=== PATIENT | male | born 1930 | race Two or more races ===

== ENCOUNTER 2018-09-19 11:40 | Inpatient (IN) | payer MEDICARE, OTHER ==
[2018-09-19] VITALS (8 sets, daily range): BP systolic 91–125; BP diastolic 44–77
[~2018-09-19] VITALS: Ht 172.7 cm; Wt 74.8 kg
--- NOTE | 2018-09-19 11:42 | NUR ---
ISIAH 878 FRM [facility] FOR AMS, SOB X TODAY. PT CAME IN ON NON-REBREATHER MASK AT 15LPM, O2 SAT UPON ARRIVAL AT 95%. PT NOTED AWAKE AND LETHARGIC. IVP ON LH 22G WITH ONGOING 1L NS. TO ER BED 8, HOOKED TO CREW MEMBER, RT AT BEDSIDE. PLACED ON HI-FLOW O2 VIA NC AT 55%, CHANGED TO GOWN, IVP LINE STARTED AT RH 20H, DR BURR AT BEDSIDE.
[2018-09-19] MEDS ORDERED: methylPREDNISolone SOD SUCC 125 MG/2ML VIAL ONE (11:51)
[2018-09-19 12:00] LABS: BASOPHILS # (AUTO) 0.1 /CMM (0.0-0.2); BASOPHILS % (AUTO) 0.5 % (0.0-2.0); EOSINOPHILS % (AUTO) 0.5 % (0.0-6.0); HEMATOCRIT 36 % (39-51); HEMOGLOBIN 11.7 g/dL (13.5-17.5); LYMPHOCYTES # (AUTO) 1.5 /CMM (0.8-4.8); LYMPHOCYTES % (AUTO) 14.8 % (20.0-44.0); MEAN CORPUSCULAR HGB CONC 32 g/dl (31.0-36.0); MEAN CORPUSCULAR VOLUME 91 fL (80-96); MONOCYTES # (AUTO) 0.9 /CMM (0.1-1.30); MONOCYTES % (AUTO) 9.5 % (2.0-12.0); NEUTROPHILS # (AUTO) 7.4 /CMM (1.8-8.9); NEUTROPHILS % (AUTO) 74.7 % (43.0-81.0); PLATELET COUNT (AUTO) 277 /CMM (150-450); RED BLOOD CELL COUNT(AUTO) 3.94 MIL/uL (4.5-6.0); WHITE BLOOD COUNT (AUTO) 9.9 K/uL (4.3-11.0)
[2018-09-19] MEDS ORDERED: IV NS 0.9% 1,000 ML BAG IV ONE (12:00)
[2018-09-19] MEDS ORDERED: ALBUTEROL FS 2.5 MG/0.5 ML VIAL.NEB NEB ONE (12:00)
[2018-09-19] MEDS ORDERED: methylPREDNISolone SOD SUCC 125 MG/2ML VIAL IV ONE (12:00)
[2018-09-19] MEDS ORDERED: ALBUTEROL FS 2.5 MG/3 ML VIAL.NEB ONE (12:07)
[2018-09-19 12:08] LABS: CALCIUM, SERUM 9.2 mg/dL (8.5-10.1); CARBON DIOXIDE 28 mmol/L (21-32); CHLORIDE 104 mmol/L (98-107); CREATININE 1.5 mg/dL (0.6-1.3); GLUCOSE 158 mg/dL (74-106); POTASSIUM 4.8 mmol/L (3.5-5.1); SODIUM SERUM 141 mmol/L (136-145); UREA NITROGEN, BLOOD 53 mg/dL (7-18)
[2018-09-19 12:11] LABS: APPEARANCE,URINE Slightly Cloudy (CLEAR); BILIRUBIN,URINE Negative (NEGATIVE); BLOOD, URINE Large Ery/uL (NEGATIVE); KETONES,URINE Negative (NEGATIVE); LEUKOCYTE ESTERASE ,URINE Large (NEGATIVE); NITRITE, URINE Negative (NEGATIVE); PH,URINE 6.5 (5.0-8.0); PROTEIN,URINE >=300 mg/dl (NEGATIVE); UGLUCOSE Negative (NEGATIVE)
[2018-09-19 12:12] LABS: COLOR,URINE Dark Yellow (YELLOW)
--- NOTE | 2018-09-19 12:17 | NUR ---
HARBOR TUG CAPTAIN AT BEDSIDE
[2018-09-19 12:21] LABS: BACTERIA,URINE Many /HPF (None Seen); SQUAMOUS EPITHELIAL CELL,UR Rare /HPF (None Seen); WBC,URINE TOO NUMEROUS TO COUN /HPF (0-3)
[2018-09-19 12:22] LABS: RBC,URINE 21-50 /HPF (0-2)
[2018-09-19 12:25] LABS: ALANINE AMINOTRANSFERASE 63 U/L (12-78); ALBUMIN 2.6 g/dL (3.4-5.0); ALKALINE PHOSPHATASE 114 U/L (46-116); ASPARTATE AMINOTRANSFERASE 62 U/L (15-37); B-TYPE NATRIURETIC PEPTIDE 791 PG/ML (0-125); BILIRUBIN,DIRECT 0.4 mg/dL (0.0-0.2); BILIRUBIN,TOTAL 0.9 mg/dL (0.2-1.0); TOTAL PROTEIN, SERUM 7.3 g/dL (6.4-8.2)
--- NOTE | 2018-09-19 12:26 | NUR ---
NASAL SUCTION DONE BY RT, LARGE YELLOW THICK SECRETIONS NOTED. NOTED W BILATERAL COARSE CRACKLES
--- NOTE | 2018-09-19 12:33 | NUR ---
PT. PLACED INTO HIGH FLOW OXYGEN DUE TO INCREASED WOB AND LOW SPO2 WITH SETTINGS BELOW ORDER: FLOW 60 FIO2 55% Addendum: 09/19/18 at 1234 by DARWIN TOMPKINS RT Amended: Links added.
[2018-09-19] MEDS ORDERED: CLINDAMYCIN IV RTU IN D5W 900 MG/50 ML PIGGYBACK IV ONE (13:00)
[2018-09-19] MEDS ORDERED: ACET-73 GT (13:03)
[2018-09-19] MEDS ORDERED: MULT-213 GT (13:03)
[2018-09-19] MEDS ORDERED: BISA10SU61 RC (13:03)
[2018-09-19] MEDS ORDERED: NA P133E RC (13:03)
[2018-09-19] MEDS ORDERED: ACET325T53 GT (13:03)
[2018-09-19] MEDS ORDERED: MAGN400O6 GT (13:03)
[2018-09-19] MEDS ORDERED: NUT.237L25 GT (13:03)
[2018-09-19] MEDS ORDERED: AMIN30LI27 GT (13:03)
[2018-09-19] MEDS ORDERED: ZINC220C6 GT (13:03)
[2018-09-19] MEDS ORDERED: ASCO500T9 GT (13:03)
[2018-09-19] MEDS ORDERED: DOCU50LI GT (13:03)
[2018-09-19] MEDS ORDERED: CRAN3875 GT (13:03)
--- NOTE | 2018-09-19 13:12 | NUR ---
CALLED FOR [facility] (110), TURNED MOVE SHEET.
--- NOTE | 2018-09-19 13:44 | NUR ---
REPORT GIVEN TO ANCA ESCAMILLA OF [facility]
--- NOTE | 2018-09-19 14:30 | NUR ---
CALLED [facility], SPOKE WITH MICHAEL WHO STATED THAT THERE IS NO BEDS, AND THAT THE FAMILY COULD TRY TOMORROW.
--- NOTE | 2018-09-19 16:25 | NUR ---
FAMILY DECIDED TO HAVE PT ADMITTED IN [place] WHILE WAITING FOR BED AVAILABILITY IN [facility]. MADE DR LUIS MIGUEL NIELSEN AWARE. TRANSFERRED PT TO [facility].
[2018-09-19] MEDS ORDERED: NA PHOS,M-B/NA PHOS,DI-BA 1 EA ENEMA RC PRN (16:30)
[2018-09-19] MEDS ORDERED: MISCELLANEOUS MED 1 EA EA GT PRN (16:30)
[2018-09-19] MEDS ORDERED: MAGNESIUM HYDROXIDE 30 ML UDC PO PRN (16:30)
[2018-09-19] MEDS ORDERED: BISACODYL SUPP (10 MG) 10 MG/SUPP.RECT SUPP.RECT RC PRN (16:30)
[2018-09-19] MEDS ORDERED: ONDANSETRON HCL/PF 4 MG/2 ML VIAL IVP PRN (16:30)
[2018-09-19] MEDS ORDERED: MAG HYDROX/AL HYDROX/SIMETH 30 ML UDC PO PRN (16:30)
[2018-09-19] MEDS ORDERED: ACETAMINOPHEN 325 MG TABLET PO PRN ×2 (16:30)
[2018-09-19] MEDS ORDERED: MAGNESIUM HYDROXIDE 30 ML UDC GT PRN ×2 (16:30→18:23)
--- NOTE | 2018-09-19 16:45 | NUR ---
[facility] RANGE FEEDER NOTES RECEIVED REPORT FROM FRANCINE MAGAÑA.PT IS AWAKE WITH PAINFUL STIMULI,WITH T PIECE @55%.NO SOB AND ACUTE DISTRESS NOTED.SATURATING WELL.BED BOUND.HAS G TUBE PRESENT,CLAMPED.B/L NEPHROSTOMY TUBE PRESENT WITH DARK YELLOW COLOR URINE.SKIN ASSESSMENT IS DONE,PICTURE HAS TAKEN.IV LINE IS ON RIGHT FA G20,SL.SITE IS CLEAN,DRY AND INTACT.PT IS CLEAN AND DRY.FAMILY IS AT BEDSIDE.BED IS IN LOW POSITION AND LOCKED.CALL LIGHT IS WITHIN REACH.WILL CONTINUE TO MONITOR THE PT CLOSELY.
[2018-09-19] MEDS ORDERED: DOCUSATE SODIUM 100 MG CAPSULE PO SCH (17:00)
[2018-09-19] MEDS ORDERED: Medication Not On Formulary EA (Cran/Vitc/Mannose/Inulin/Brom (Uti-Stat Liquid) 30 ML) GT SCH (17:00)
--- NOTE | 2018-09-19 17:08 | NUR ---
Dr. Castanon notified with patient admission updated on high flow fio2 at 55% and sat 96%,dr. castanon ordered abg ,will relay result to dr. castanon once available.
--- NOTE | 2018-09-19 17:10 | NUR ---
also notified humberto case management specialist regarding request transfer to [facility].
[2018-09-19] MEDS: methylPREDNISolone SOD SUCC 40 MG/ML VIAL IV SCH (17:39)
[2018-09-19] MEDS: IV NS 0.9% 1,000 ML IV PRN (17:40)
[2018-09-19] MEDS: PROSOURCE / PROSTAT (PYXIS) 30 ML UDC GT SCH (17:40)
[2018-09-19 17:41] LABS: ABG OXYGEN SATURATION 96.2 % (92.0-98.5); ABG PCO2 47.4 mmHg (35.0-45.0); ABG PH 7.355 (7.350-7.450); ABG PO2 97.9 mmHg (75.0-100.0); AaDO2 241.5 mmHg; COHb 0.4 % (0.5-1.5); MetHb 0.5 % (0.0-1.5); O2Hb 95.3 % (94.0-97.0); SITE, ABG Right Radial; VENT MODE, BG 55% high flow nasal cannu
--- NOTE | 2018-09-19 17:54 | NUR ---
DR. JUAN NOTIFIED ABG RESULT AND UPDATED WITH PATIENT COGNITIVE STATUS,ORDERED ICU TRANSFER FOR CLOSE MONITORING.
--- NOTE | 2018-09-19 18:00 | NUR ---
[facility] RN NOTES PT TRANSFERRED TO ICU ROOM 252,RT AND RN AT BEDSIDE WHILE TRANSFER.NO SOB AND ACUTE DISTRESS NOTED WITH SR.REPORT GIVEN TO CHARGE NURSE.FAMILY MADE AWARE AND NO COMPLICATIONS NOTED.
[2018-09-19] MEDS ORDERED: MAG HYDROX/AL HYDROX/SIMETH 30 ML UDC GT PRN (18:10)
--- NOTE | 2018-09-19 18:25 | NUR ---
received patient from priscilla braun per dr castanon request transfer to icu for closer monitoring. patient on high flow 02 55% at 60L and saturating stable at 96% without sob or difficulty breathing. patient opens eyes to painful stimuli and moves to localized pain. patient tele nsr with 1st degree heart block. afebrile. noted with g tube clamped; placement verified. noted with bilateral nephrostomy tubes intact and patent. iv site c/d/i/p with ivf running per order. skin, safety, aspiration precautions in place and will monitor Addendum: 09/19/18 at 1925 by SUZANNE LEDESMA RN core temp 96.0 applied warm blankets. core temp monitoring applied
--- NOTE | 2018-09-19 19:00 | NUR ---
care endorsed to priscilla darnell for evelia
[2018-09-19] MEDS: CLINDAMYCIN 300 MG in IV D5W 50 ML IV SCH (19:30)
[2018-09-19] MEDS: ALBUTEROL FS 2.5 MG/0.5 ML VIAL.NEB NEB SCH (19:39)
[2018-09-19] MEDS: IPRATROPIUM NEB FS 0.5 MG/2.5 ML AMPUL.NEB NEB SCH (19:39)
--- NOTE | 2018-09-19 19:40 | NUR ---
RN NOTES RECEIVED PT ON BED ON HIGH FLOW O2 60 LPM FIO2 55% SATURATION 96%.NO ACUTE RESPIRATORY DISTRESS. OPENS EYES, COLD AND CLAMMY BS 168 TEMPERATURE 96, WARM BLANKET AND EXTRA BLANKET PROVIDED. FAMILY AT BEDSIDE. PT RESIST WHEN TOUCH. RESPONSIVE TO TACTILE AND VERBAL STIMULI, CONFUSED. SR W/ FIRST DEGREE AVB ON TELE MONITOR. IV SITE ON RIGHT HAND G 20 RUNNING WITH NS @ 75 ML/.HR INTACT AND PATENT. PATIENT HAS GT CLAMPED PATENT WITH NO RESIDUAL. TURNED AND REPOSITIONED FOR COMFORTABLE. HOB KEPT ELEVATED. CALL LIGHT KEPT WITHIN EASY REACH. WILL CLOSELY MONITOR.
--- NOTE | 2018-09-19 20:30 | NUR ---
RN NOTES FAMILY AT BEDSIDE, KONRAD CRUZ REQUESTED TO PLACED BIPAP AT NIGHT SINCE THE PATIENT IS HAVING IT IN THE OTHER HOSPITAL AND REHAB.RT EXPLAINED TO FAMILY THE RISK AND BENEFITS OF HIGH FLOW OXYGEN AND THE DIFFERENCE FROM BIPAP. INFORMED FAMILY THE WILL INFORM MD REGARDING THEIR REQUEST.
[2018-09-19] MEDS ORDERED: SULFAMETH/TRIMETH 800/160 MG 1 UDTAB TABLET PO SCH (21:00)
[2018-09-19] MEDS: AZTREONAM 1 G in IV NS 0.9% 100 ML IV SCH (21:11)
--- NOTE | 2018-09-19 22:30 | NUR ---
RN NOTES NOTED PT IV CAME OUT. NEW IV INSERTED ON RIGHT FOREARM G 20 INTACT AND PATENT WITH GOOD BLOOD RETURN
[2018-09-20] VITALS (27 sets, daily range): BP systolic 86–119; BP diastolic 40–74
[2018-09-20] MEDS: CLINDAMYCIN 300 MG in IV D5W 50 ML IV SCH ×4 (00:23→18:38)
[2018-09-20] MEDS: ALBUTEROL FS 2.5 MG/0.5 ML VIAL.NEB NEB SCH ×4 (01:19→19:36)
[2018-09-20] MEDS: IPRATROPIUM NEB FS 0.5 MG/2.5 ML AMPUL.NEB NEB SCH ×4 (01:19→19:36)
[2018-09-20 04:28] LABS: BASOPHILS % (AUTO) 0.5 % (0.0-2.0); HEMATOCRIT 31 % (39-51); HEMOGLOBIN 9.8 g/dL (13.5-17.5); LYMPHOCYTES # (AUTO) 0.5 /CMM (0.8-4.8); LYMPHOCYTES % (AUTO) 8.5 % (20.0-44.0); MEAN CORPUSCULAR HGB CONC 32 g/dl (31.0-36.0); MEAN CORPUSCULAR VOLUME 92 fL (80-96); MONOCYTES # (AUTO) 0.2 /CMM (0.1-1.30); MONOCYTES % (AUTO) 3.7 % (2.0-12.0); NEUTROPHILS # (AUTO) 5.4 /CMM (1.8-8.9); NEUTROPHILS % (AUTO) 87.3 % (43.0-81.0); PLATELET COUNT (AUTO) 240 /CMM (150-450); RED BLOOD CELL COUNT(AUTO) 3.35 MIL/uL (4.5-6.0); WHITE BLOOD COUNT (AUTO) 6.1 K/uL (4.3-11.0)
[2018-09-20 04:42] LABS: CARBON DIOXIDE 25 mmol/L (21-32); CHLORIDE 110 mmol/L (98-107); GLUCOSE 136 mg/dL (74-106); MAGNESIUM 2.2 mg/dL (1.8-2.4); POTASSIUM 4.5 mmol/L (3.5-5.1); SODIUM SERUM 144 mmol/L (136-145); UREA NITROGEN, BLOOD 47 mg/dL (7-18)
[2018-09-20 04:56] LABS: CHOLESTEROL 91 mg/dL (<200); HDL CHOLESTEROL 19 mg/dL (40-60); LDL 43 mg/dL (0-99); THYROID STIMULATING HORMONE 8.384 uIU/mL (0.358-3.74); TRIGLYCERIDES 144 mg/dL (30-150)
[2018-09-20] MEDS: AZTREONAM 1 G in IV NS 0.9% 100 ML IV SCH ×3 (05:12→21:34)
[2018-09-20] MEDS: IV NS 0.9% 1,000 ML IV PRN ×2 (06:24→18:37)
--- NOTE | 2018-09-20 06:48 | NUR ---
RN NOTES PATIENT CONTINUE ON HIGH FLOW AT THE SAME RATE ORDERED. FREQUENT SUCTIONING PROVIDED. NO SIGNIFICANT TYRA THROUGHOUT THE SHIFT. ASLEEP WELL. HOB KEPT ELEVATED. IVF RUNNING @ 75 ML.HR ON RFA. ALL DUE MEDS AND IV ATB TOLERATED WELL. INCONTINENT CARE PROVIDED. BILATERAL NEPHROSTOMY TUBE INTACT DRAINED WITH YELLOW CLEAR COLOR URINE. KEPT PT CLEAN AND DRY BED BATH DONE AND TOLERATED WELL. WILL ENDORSED TO AM SHIFT THAT SON REQUESTED TO PLACED BIPAP AT NIGHT . WILL ENDORSED CONTINUITY OF CARE TO AM NURSE.
--- NOTE | 2018-09-20 07:05 | NUR ---
CAN DOFFER INITIAL NOTES RECEIVED PT ON HIGH FLOW 02 AT 60LPM AND AN FIO2 OF 55%. NO SOB OR ACUTE SIGNS OF DISTRESS NOTED. BREATHING IS EVEN AND UNLABORED. PT NOTED TO BE SINUS RHYTHM ON THE MONITOR. BILATERAL NEPHROSTOMY NOTED TO BE DRAINING. RIGHT FA 20G NOTED TO BE C/D/I. PT TOLERATING NS 75ML/HR. NO REDNESS OR SIGNS OF INFILTRATION NOTED. GTUBE NOTED TO BE CLAMPED. PLACEMENT VERIFIED VIA AUSCULTATION. PT NOTED TO BE HYPOTHERMIC WITH A CURRENT CORE TEMP OF 95.3. CENTRAL SUPPLY CONTACTED FOR ALIYA COKER. FURTHER WARMING MEASURES INITIATED. BED IN LOW LOCKED POSITION, SIDE RAILS UP X3, CALL LIGHT WITHIN REACH, BED ALARM ON FOR FURTHER SAFETY. WILL CONTINUE TO MONITOR
[2018-09-20] MEDS ORDERED: PANTOPRAZOLE 40 MG TABLET.DR PO SCH (07:30)
[2018-09-20] MEDS: PANTOPRAZOLE 40 MG/PACK PACK GT SCH (08:20)
[2018-09-20] MEDS: DOCUSATE SODIUM LIQ 100 MG/10 ML UDC GT SCH ×2 (08:21→17:19)
[2018-09-20] MEDS: ZINC SULFATE 220 MG CAPSULE GT SCH (08:21)
[2018-09-20] MEDS: MULTIVITAMINS,THERAGRAN 1 UDTAB TABLET GT SCH (08:21)
[2018-09-20] MEDS: methylPREDNISolone SOD SUCC 40 MG/ML VIAL IV SCH ×2 (08:21→17:19)
[2018-09-20] MEDS: ASCORBIC ACID 500 MG TABLET GT SCH (08:21)
[2018-09-20] MEDS ORDERED: DOCUSATE SODIUM LIQ 100 MG/10 ML UDC GT SCH (09:00)
[2018-09-20] MEDS: PROSOURCE / PROSTAT (PYXIS) 30 ML UDC GT SCH ×2 (09:14→17:21)
[2018-09-20 09:27] LABS: ABG BASE EXCESS -0.5 mmol/L; ABG OXYGEN SATURATION 97.4 % (92.0-98.5); ABG PCO2 46.9 mmHg (35.0-45.0); ABG PH 7.351 (7.350-7.450); ABG PO2 114.1 mmHg (75.0-100.0); AaDO2 262.1 mmHg; COHb 0.1 % (0.5-1.5); MetHb 0.5 % (0.0-1.5); O2Hb 96.8 % (94.0-97.0); SITE, ABG Right Radial; VENT MODE, BG HFNC
[2018-09-20] MEDS: ENOXAPARIN SODIUM 40 MG/0.4 ML DISP.SYRIN SQ SCH (10:45)
[2018-09-20] MEDS ORDERED: NOREPINEPHRINE 8 MG in IV D5W 500 ML IV PRN (11:00)
[2018-09-20] MEDS: TWOCAL HN 1,000 ML LIQUID GT SCH (11:38)
--- NOTE | 2018-09-20 11:55 | NUR ---
QUARTZ MINER BLASTING NOTES: INSPECTOR PUBLICATIONS ROUNDING LUIS MIGUEL AT BEDSIDE AND MADE AWARE OF PT'S CONDITION AND RECENT VITAL SIGNS. VERBAL ORDER OBTAINED FROM MD FOR BILATERAL RESTRAINTS PT IS NOTED TO BE REMOVING NC ALONG WITH BEAR HUGGER. PT'S CAREGIVER AT BEDSIDE AND UPDATED ON PLAN OF CARE.
--- NOTE | 2018-09-20 19:22 | NUR ---
FRANCHISE MANAGER CLOSING NOTES NO ACUTE CHANGES IN PT'S CONDITION DURING SHIFT. VSS. PT HAS A CURRENT TEMP OF 96.8. WARMING MEASURES CONTINUED. INVASIVE LINES REMAIN PATENT AND INTACT. PT CONTINUES TOLERATING NS INFUSION WELL. TUBE FEEDING INITIATED DIRECTED BY ELECTRIC METER INSPECTOR. PT TOLERATING FEEDINGS WELL. NO RESIDUALS ASPIRATED AT THIS TIME. SAFETY MEASURES REMAIN IN PLACE. ENDORSED TO NIGHTSHIFT RN FOR TYRA
[2018-09-21] VITALS (29 sets, daily range): BP systolic 104–172; BP diastolic 43–69
[2018-09-21] MEDS: CLINDAMYCIN 300 MG in IV D5W 50 ML IV SCH ×5 (00:20→23:25)
[2018-09-21] MEDS: IPRATROPIUM NEB FS 0.5 MG/2.5 ML AMPUL.NEB NEB SCH ×4 (00:59→19:03)
[2018-09-21] MEDS: ALBUTEROL FS 2.5 MG/0.5 ML VIAL.NEB NEB SCH ×4 (00:59→19:03)
[2018-09-21 04:27] LABS: BASOPHILS % (AUTO) 0.2 % (0.0-2.0); HEMATOCRIT 30 % (39-51); HEMOGLOBIN 9.4 g/dL (13.5-17.5); LYMPHOCYTES # (AUTO) 0.3 /CMM (0.8-4.8); LYMPHOCYTES % (AUTO) 3.6 % (20.0-44.0); MEAN CORPUSCULAR HGB CONC 32 g/dl (31.0-36.0); MEAN CORPUSCULAR VOLUME 94 fL (80-96); MONOCYTES # (AUTO) 0.5 /CMM (0.1-1.30); MONOCYTES % (AUTO) 6.3 % (2.0-12.0); NEUTROPHILS # (AUTO) 7.5 /CMM (1.8-8.9); NEUTROPHILS % (AUTO) 89.9 % (43.0-81.0); PLATELET COUNT (AUTO) 236 /CMM (150-450); RED BLOOD CELL COUNT(AUTO) 3.16 MIL/uL (4.5-6.0); WHITE BLOOD COUNT (AUTO) 8.4 K/uL (4.3-11.0)
[2018-09-21 04:40] LABS: CALCIUM, SERUM 9.2 mg/dL (8.5-10.1); CARBON DIOXIDE 26 mmol/L (21-32); CHLORIDE 117 mmol/L (98-107); CREATININE 0.9 mg/dL (0.6-1.3); GLUCOSE 171 mg/dL (74-106); MAGNESIUM 2.2 mg/dL (1.8-2.4); PHOSPHORUS 3.1 mg/dL (2.5-4.9); POTASSIUM 4.2 mmol/L (3.5-5.1); SODIUM SERUM 149 mmol/L (136-145); UREA NITROGEN, BLOOD 41 mg/dL (7-18)
[2018-09-21] MEDS: AZTREONAM 1 G in IV NS 0.9% 100 ML IV SCH ×3 (05:24→20:51)
--- NOTE | 2018-09-21 07:06 | NUR ---
RFID SYSTEMS ENGINEER INITIAL NOTES RECEIVED PT ON HIGH FLOW 02 AT 50LPM AND AN FIO2 OF 55%. NO SOB OR ACUTE SIGNS OF DISTRESS NOTED. BREATHING IS EVEN AND UNLABORED. PT NOTED TO BE SINUS RHYTHM ON THE MONITOR. BILATERAL NEPHROSTOMY NOTED TO BE DRAINING. RIGHT FA 20G NOTED TO BE C/D/I. PT TOLERATING NS 75ML/HR. NO REDNESS OR SIGNS OF INFILTRATION NOTED. GTUBE CONNECTED TO TUBE FEEDING. PLACEMENT VERIFIED VIA AUSCULTATION. PT TOLERATING TUBE FEEDINGS WELL. LESS THAN 5CC OF RESIDUALS ASPIRATED. VSS AT THIS TIME. BED IN LOW LOCKED POSITION, SIDE RAILS UP X3, CALL LIGHT WITHIN REACH, BED ALARM ON FOR FURTHER SAFETY. WILL CONTINUE TO MONITOR
[2018-09-21] MEDS: ENOXAPARIN SODIUM 40 MG/0.4 ML DISP.SYRIN SQ SCH (08:05)
[2018-09-21] MEDS: MULTIVITAMINS,THERAGRAN 1 UDTAB TABLET GT SCH (08:15)
[2018-09-21] MEDS: ZINC SULFATE 220 MG CAPSULE GT SCH (08:15)
[2018-09-21] MEDS: PANTOPRAZOLE 40 MG/PACK PACK GT SCH (08:15)
[2018-09-21] MEDS: PROSOURCE / PROSTAT (PYXIS) 30 ML UDC GT SCH ×2 (08:15→17:02)
[2018-09-21] MEDS: ASCORBIC ACID 500 MG TABLET GT SCH (08:15)
[2018-09-21] MEDS: DOCUSATE SODIUM LIQ 100 MG/10 ML UDC GT SCH ×2 (08:15→17:33)
[2018-09-21] MEDS: methylPREDNISolone SOD SUCC 40 MG/ML VIAL IV SCH ×2 (08:16→17:33)
--- NOTE | 2018-09-21 08:19 | NUR ---
WOUND CARE CONSULT: PT PRESENTS WITH BLANCHABLE REDNESS TO SACRUM AND DRY HEALING SKIN TEAR TO RT HAND PRESENT ON ADMISSION. PT NOTED TO HAVE BILATERAL NEPHROSTOMY TUBES WITH DRAINAGE BAGS, PRESENT ON ADMISSION. RECOMMENDATIONS MADE FOR SKIN [id number]. DISCUSSED WITH NURSING STAFF. PT IS COMBATIVE AT TIMES PER NURSING STAFF. WILL SEE PRN. CURRENT DIMA SCORE IS 13. IN AGREEMENT WITH PLAN OF CARE. Addendum: 09/21/18 at 0821 by LEON BELTRE WNDNU Amended: Links added.
[2018-09-21] MEDS ORDERED: IV D5/0.45 NACL 1,000 ML IV ONE (10:00)
[2018-09-21] MEDS: TWOCAL HN 1,000 ML LIQUID GT SCH (11:06)
[2018-09-21 12:41] LABS: ABG BASE EXCESS 0.9 mmol/L; ABG PCO2 47.5 mmHg (35.0-45.0); ABG PH 7.366 (7.350-7.450); ABG PO2 93.8 mmHg (75.0-100.0); AaDO2 245.5 mmHg; COHb 0.1 % (0.5-1.5); MetHb 0.6 % (0.0-1.5); O2Hb 95.3 % (94.0-97.0); SITE, ABG Right Radial; VENT MODE, BG HFNC 50L 55%
--- NOTE | 2018-09-21 15:30 | NUR ---
MANAGED SERVICES SALES CONSULTANT NOTES: CASE MANAGEMENT CONSULT SOFTWARE SALES EXECUTIVE PHAN ON UNIT TO CONSULT WITH PT'S FAMILY IN REGARDS TO CEDAR TRANSFER HOWEVER FAMILY NO LONGER AT BEDSIDE. CM GIVEN CONTACT INFORMATION OF PT'S DAUGHTER TK FOR FOLLOWUP. PER SOFTWARE SALES EXECUTIVE "WE ARE UNABLE TO FACILITATE A TRANSFER TO [facility] AT THIS TIME THERE IS NO ACCEPTING PHYSICIAN OR BED AVAILABLE PER THE [facility] DRUM TENDER JAYDEN". FAMILY PREVIOUSLY INFORMED OF THIS BY MYSELF, NUT SORTER LUIS MIGUEL, DR. JUAN, AND CHARGE NURSE.
--- NOTE | 2018-09-21 16:58 | NUR ---
GUIDE VISITOR NOTES: SENIOR INFRASTRUCTURE ENGINEER ORDER PT'S GRANDDAUGHTER AT BEDSIDE AND STATES THAT PT'S HAS A HISTORY OF DM. SENIOR INFRASTRUCTURE ENGINEER LUIS MIGUEL MADE AWARE. TELEPHONE ORDER OBTAINED FRO Q6H ACCU CHECKS AND SSI. ORDER FOR IVF ALSO CLARIFIED. PER SENIOR INFRASTRUCTURE ENGINEER, "HAVE A CONTINUOS INFUSION OF D5 1/2 NS AT 75ML/HR"
[2018-09-21] MEDS ORDERED: DEXTROSE 50%-WATER 50 ML DISP.SYRIN IV PRN (17:00)
--- NOTE | 2018-09-21 17:00 | NUR ---
FARM MACHINE TENDER NOTES: PT BELONGINGS PT'S CAREGIVER BROUGHT PT'S LEFT EAR HEARING AID AND BACK UP BATTERY AND PERSISTS THAT IT STAY AT BEDSIDE. BELONGS LIST VERIFIED Addendum: 09/21/18 at 1902 by ANDI BARRON RN * BELONGINGS LIST UPDATED
[2018-09-21] MEDS: BLOOD SUGAR DIAGNOSTIC 1 EACH STRIP IN SCH ×2 (17:33→23:33)
[2018-09-21] MEDS: INSULIN REGULAR, HUMAN 100 UNIT/ML 3 ML VIAL SQ PRN ×2 (17:46→23:36)
--- NOTE | 2018-09-21 19:03 | NUR ---
DOCUMENTATION IMPROVEMENT SPECIALIST CLOSING NOTES NO ACUTE CHANGES IN PT'S CONDITION DURING SHIFT. VSS. PT AFEBRILE THROUGHOUT SHIFT. INVASIVE LINES REMAIN PATENT AND INTACT. PT CONTINUES TOLERATING NS INFUSION WELL. PT TOLERATING FEEDINGS WELL. NO RESIDUALS ASPIRATED AT THIS TIME. SAFETY MEASURES REMAIN IN PLACE. WILL ENDORSE TO NIGHTSHIFT RN FOR TYRA
--- NOTE | 2018-09-21 22:20 | NUR ---
B2B SALES EXECUTIVE: EULALIA FROM [facility] CALLED TO INITIATE TRANSFER AND SAID FINANCIAL CLEARANCE IS STILL NEEDED SO POSSIBLE TRANSFER WILL BE ON MONDAY.
[2018-09-22] VITALS (25 sets, daily range): BP systolic 120–155; BP diastolic 54–79
--- NOTE | 2018-09-22 01:15 | NUR ---
LUMBER CUTTER: DAUGHTER VIRIDIANA AND SON MATTEO CALLED AND UPDATED PT STATUS. STILL ON HIGH FLOW O2 AT 50 LPM WT NO ACUTE DISTRESS. VS WITHIN HIS BASELINE. CONTINUE ON D5 1/2 NS AT 75ML/HR WT NO IV INFILTRATION. GT FEEDING TOLERATED WELL. BILAT. MITTENS IN PLACE FOR EPISODES OF TRYING TO PULL TUBINGS. SKIN AND CIRCULATION WNL. BILAT. NEPHROSTOMY TUBES DRAINING YELLOW URINE. ALSO INFORMED FAMILY [facility] OF [facility] POSSIBLE TRANSFER ON MONDAY.
[2018-09-22] MEDS: ALBUTEROL FS 2.5 MG/0.5 ML VIAL.NEB NEB SCH ×4 (01:25→19:09)
[2018-09-22] MEDS: IPRATROPIUM NEB FS 0.5 MG/2.5 ML AMPUL.NEB NEB SCH ×4 (01:25→19:09)
[2018-09-22] MEDS: IV D5/0.45 NACL 1,000 ML IV PRN ×2 (01:55→19:45)
[2018-09-22 04:36] LABS: BASOPHILS % (AUTO) 0.1 % (0.0-2.0); HEMATOCRIT 30 % (39-51); HEMOGLOBIN 9.6 g/dL (13.5-17.5); LYMPHOCYTES # (AUTO) 0.4 /CMM (0.8-4.8); LYMPHOCYTES % (AUTO) 4.4 % (20.0-44.0); MEAN CORPUSCULAR HGB CONC 32 g/dl (31.0-36.0); MEAN CORPUSCULAR VOLUME 93 fL (80-96); MONOCYTES # (AUTO) 0.6 /CMM (0.1-1.30); MONOCYTES % (AUTO) 6.8 % (2.0-12.0); NEUTROPHILS # (AUTO) 7.5 /CMM (1.8-8.9); NEUTROPHILS % (AUTO) 88.7 % (43.0-81.0); PLATELET COUNT (AUTO) 217 /CMM (150-450); RED BLOOD CELL COUNT(AUTO) 3.25 MIL/uL (4.5-6.0); WHITE BLOOD COUNT (AUTO) 8.4 K/uL (4.3-11.0)
[2018-09-22 04:53] LABS: CALCIUM, SERUM 8.9 mg/dL (8.5-10.1); CARBON DIOXIDE 28 mmol/L (21-32); CHLORIDE 116 mmol/L (98-107); CREATININE 0.7 mg/dL (0.6-1.3); GLUCOSE 175 mg/dL (74-106); MAGNESIUM 2.2 mg/dL (1.8-2.4); POTASSIUM 4.4 mmol/L (3.5-5.1); SODIUM SERUM 151 mmol/L (136-145); UREA NITROGEN, BLOOD 32 mg/dL (7-18)
[2018-09-22] MEDS: AZTREONAM 1 G in IV NS 0.9% 100 ML IV SCH ×3 (05:04→20:28)
[2018-09-22 05:40] LABS: LYMPHOCYTES % (MANUAL) 3 % (16-48); METAMYELOCYTES % 1 % (0-0); MONOCYTES % (MANUAL) 7 % (0-11.0); NEUTROPHILS % (MANUAL) 89 (42-76)
[2018-09-22] MEDS: BLOOD SUGAR DIAGNOSTIC 1 EACH STRIP IN SCH ×4 (05:45→23:38)
[2018-09-22] MEDS: INSULIN REGULAR, HUMAN 100 UNIT/ML 3 ML VIAL SQ PRN ×3 (05:47→23:38)
[2018-09-22] MEDS: CLINDAMYCIN 300 MG in IV D5W 50 ML IV SCH ×4 (06:17→23:21)
--- NOTE | 2018-09-22 06:25 | NUR ---
RADIO TESTER: NO SIGNIFICANT CHANGE OF CONDITION DURING THE SHIFT. PT REMAINS ALERT AND AWAKE, ABLE TO FOLLOW COMMANDS AT TIMES. TOLERATING HIGH FLOW 02 AT 50LPM WT NO ACUTE DISTRESS. VS WITHIN HIS BASELINE. UNABLE TO COLLECT SPUTUM PT IS NOT PRODUCTIVE/CONGESTIVE AT THIS TIME. STOOL FOR OCCULT BLOOD COLLECTED. CONTINUE ON D5 1/2 NS AT 75ML/HR WT NO S/S OF IV INFILTRATION. BILAT. MITTENS IN PLACE WT SKIN AND CIRCULATION WNL. BED IN LOW POSITION, LOCKED WT SIDE RAILS UP X 2. HOB AT 35 DEGREES. WILL ENDORSE TO DAY SHIFT FOR CONTINUITY OF CARE.
--- NOTE | 2018-09-22 07:37 | NUR ---
RT MED NOTE PT WRISTBAND NOT SCANNING W/ RT COMPUTER SCANNER. MANUAL ENTRY USED
[2018-09-22 07:59] LABS: ABG BASE EXCESS 1.2 mmol/L; ABG OXYGEN SATURATION 93.7 % (92.0-98.5); ABG PCO2 41.7 mmHg (35.0-45.0); ABG PH 7.411 (7.350-7.450); ABG PO2 72.4 mmHg (75.0-100.0); COHb 0.1 % (0.5-1.5); MetHb 0.6 % (0.0-1.5); SITE, ABG Right Radial; VENT MODE, BG HIGH FLOW 35L 45%
[2018-09-22 08:07] LABS: IMMUNOGLOBULIN A, SERUM 160 mg/dL (61-437); IMMUNOGLOBULIN G, SERUM 832 mg/dL (700-1600); IMMUNOGLOBULIN M, SERUM 16 mg/dL (15-143); T3, FREE 1.1 pg/mL (2.0-4.4)
[2018-09-22] MEDS: ZINC SULFATE 220 MG CAPSULE GT SCH (08:27)
[2018-09-22] MEDS: PANTOPRAZOLE 40 MG/PACK PACK GT SCH (08:27)
[2018-09-22] MEDS: ASCORBIC ACID 500 MG TABLET GT SCH (08:28)
[2018-09-22] MEDS: methylPREDNISolone SOD SUCC 40 MG/ML VIAL IV SCH ×2 (08:28→16:21)
[2018-09-22] MEDS: FERROUS SULFATE (325 MG) 325 MG/TAB TABLET PO SCH ×2 (08:28→16:21)
[2018-09-22] MEDS: DOCUSATE SODIUM LIQ 100 MG/10 ML UDC GT SCH ×2 (08:28→16:21)
[2018-09-22] MEDS: ENOXAPARIN SODIUM 40 MG/0.4 ML DISP.SYRIN SQ SCH (08:29)
--- NOTE | 2018-09-22 10:09 | NUR ---
rn notes 729-received patient from rn. patient asleep, opens eyes to voice. oral care attmepted, patient closes mouth at times.safety maintained. no sign of pain. on high flow 829-seen by Dr. Thurman, he evaluated bilateral nephrostomy tubes. caregiver marisol present, she was informed of patient status, infprmed her that patient at times closes his mouth when oral care is attempted. 1000-patient seen by Dr. Valdes, he informed marisol of patient status.Dr. Ignacio also made rounds ealrier and he updated marisol of patient status.monitor patient status
[2018-09-22] MEDS: PROSOURCE / PROSTAT (PYXIS) 30 ML UDC GT SCH ×2 (10:17→16:21)
[2018-09-22] MEDS: MULTIVITAMINS,THERAGRAN 1 UDTAB TABLET GT SCH (10:21)
[2018-09-22] MEDS ORDERED: NEUTRA PHOS 1 POWD.PACKET GT ONE (11:00)
--- NOTE | 2018-09-22 11:27 | NUR ---
rn notes patient son, burke visits, he was updated of patient status.accuchecks done, no coverage this time, gt feedings restrated.
[2018-09-22] MEDS: Z GUARD REMEDY 2 OZ OINT TP PRN (16:49)
--- NOTE | 2018-09-22 18:26 | NUR ---
RN NOTES 1400-PATIENT REMAINS ON AIRVO, 35%. ORAL CARE DONE, REMAISN WITH RESISTANCE AT TIMES. PATIENT REPOSITIONED FOR COMFORT AND SAFETY. GT FEEDINGS ONGOING, NO RESIDUALS NOTED. 1600-AFEBRILE, THOUGH FACE SLIGHTLY FLUSHED. CAREGIVER AT BEDSIDE.PATIENT APPEARS COMFORTABLE, NO SIGN OF PAIN. BILATERAL NEPHROSTOMY WITH YELLOW COLORED DRAIN, KEPT LINES KINK-FREEE, FREQUENT VISUAL CHECKS DONE.
--- NOTE | 2018-09-22 19:18 | NUR ---
RN NOTES PATIENT FAMILY AT BEDSIDE. NO SIGN OF PAIN, FAMILY MEMBER HAS CONERN ABOUT "DEEP SUCTIONING" HIM, RT DEPARTMENT NOTIFIED OF FAMILY CONCERN.REPORT GIVEN TO INCOMING RN FOR FURTHER CARE
--- NOTE | 2018-09-22 19:45 | NUR ---
ICU/STATION MECHANIC APPRENTICE RECEIVED REPORT FROM DAY NURSE. SEE FLOWSHEET FOR ASSESSMENT, ALONG WITH SKIN ISSUES THAT PT MAY HAVE ALONG WITH THE INTERVENTIONS TO EACH OF THESE. PT WAS TURNED AND REPOSITIONED FOR COMFORT AND CARE. WILL CONTINUE TO MONITOR THIS PT. NO ACUTE DISTRESS SEEN AT THIS TIME.
--- NOTE | 2018-09-22 20:30 | NUR ---
RECEIVE PT ON HIGH FLOW 35L, 45% FIO2. PT TOLERATING SETTINGS NO DISTRESS. B/S COARSE BILAT. O2 SAT 95%. MACHINE PLUGGED INTO RED OUTLET. TEMP 37C. WATER BAG FULL. WILL CONTINUE TO MONITOR. Addendum: 09/22/18 at 2033 by KAYKAY RUIZ RT Amended: Links added.
--- NOTE | 2018-09-22 22:20 | NUR ---
ICU/GEM TECHNICIAN PT WAS TURNED AND REPOSITIONED AFTER JANIE CARE WAS GIVEN. NO ACUTE DISTRESS SEEN AT THIS TIME. PT APPEARS TO BE RESTING COMFORTABLE. THERE ARE NO RESIDUALS SEEN AT THIS TIME.
--- NOTE | 2018-09-22 22:50 | NUR ---
ICU/COUNTY AGRICULTURAL AGENT DAUGHTER CALLED AND ASKED FOR UPDATE ON THIS PT, SHE ASKED FOR VITAL SIGNS, NURSES NAME, ALSO ASKED ABOUT AM LABS. UPDATES WERE GIVEN TO THE DAUGHTER, NOTHING ELSE WAS SAID.
[2018-09-23] VITALS (29 sets, daily range): BP systolic 117–151; BP diastolic 55–80
--- NOTE | 2018-09-23 00:15 | NUR ---
ICU/ANALYTICAL MANAGER ED WAS CALLED THE ICU FOR AN UPDATE ON THE PT. UPDATE WAS GIVEN HOWEVER DID NOT SAY ANYTHING ELSE ABOUT THIS PT.
[2018-09-23] MEDS: IPRATROPIUM NEB FS 0.5 MG/2.5 ML AMPUL.NEB NEB SCH ×4 (00:46→19:32)
[2018-09-23] MEDS: ALBUTEROL FS 2.5 MG/0.5 ML VIAL.NEB NEB SCH ×4 (00:46→19:32)
--- NOTE | 2018-09-23 01:10 | NUR ---
ICU/THEATRICAL TROUPER MIDNIGHT ACCU CHECK WAS DONE, BLOOD SUGAR WAS 149. THIS WAS COVERED WITH 2 UNITS OF REG. INSULIN. WILL CONTINUE TO MONITOR THE SUGARS ORDERED BY MD AND HOSPITAL PROTOCOL.
--- NOTE | 2018-09-23 02:20 | NUR ---
ICU/DEMAND PLANNING ANALYST PT WAS GIVEN AM CARE, ALONG WITH ORAL CARE. PT REMAINS ON CURRENT HIGH FLOW OXYGEN SETTINGS. PT WAS TURNED AND REPOSITIONED FOR COMFORT AND CARE. WILL CONTINUE TO MONITOR THIS PT.
[2018-09-23] MEDS: AZTREONAM 1 G in IV NS 0.9% 100 ML IV SCH ×3 (04:15→20:14)
--- NOTE | 2018-09-23 04:15 | NUR ---
ICU/GAME SHOW HOST AM LABS AND CHEST XRAY WAS DONE.AWAIT FOR ANY ABNORMAL VALUES.
[2018-09-23 04:35] LABS: BASOPHILS % (AUTO) 0.1 % (0.0-2.0); HEMATOCRIT 32 % (39-51); HEMOGLOBIN 9.9 g/dL (13.5-17.5); LYMPHOCYTES # (AUTO) 0.6 /CMM (0.8-4.8); LYMPHOCYTES % (AUTO) 5.8 % (20.0-44.0); MEAN CORPUSCULAR HGB CONC 31 g/dl (31.0-36.0); MEAN CORPUSCULAR VOLUME 92 fL (80-96); MONOCYTES # (AUTO) 0.6 /CMM (0.1-1.30); MONOCYTES % (AUTO) 5.8 % (2.0-12.0); NEUTROPHILS # (AUTO) 9.2 /CMM (1.8-8.9); NEUTROPHILS % (AUTO) 88.3 % (43.0-81.0); PLATELET COUNT (AUTO) 240 /CMM (150-450); RED BLOOD CELL COUNT(AUTO) 3.43 MIL/uL (4.5-6.0); WHITE BLOOD COUNT (AUTO) 10.4 K/uL (4.3-11.0)
[2018-09-23 04:47] LABS: CALCIUM, SERUM 9.2 mg/dL (8.5-10.1); CARBON DIOXIDE 30 mmol/L (21-32); CHLORIDE 113 mmol/L (98-107); CREATININE 0.7 mg/dL (0.6-1.3); GLUCOSE 156 mg/dL (74-106); MAGNESIUM 2.1 mg/dL (1.8-2.4); PHOSPHORUS 2.7 mg/dL (2.5-4.9); POTASSIUM 4.7 mmol/L (3.5-5.1); SODIUM SERUM 150 mmol/L (136-145); UREA NITROGEN, BLOOD 31 mg/dL (7-18)
[2018-09-23] MEDS: CLINDAMYCIN 300 MG in IV D5W 50 ML IV SCH ×2 (05:24→11:55)
[2018-09-23] MEDS: BLOOD SUGAR DIAGNOSTIC 1 EACH STRIP IN SCH ×3 (05:44→17:24)
[2018-09-23] MEDS: INSULIN REGULAR, HUMAN 100 UNIT/ML 3 ML VIAL SQ PRN ×2 (05:48→17:26)
[2018-09-23] MEDS: PANTOPRAZOLE 40 MG/PACK PACK GT SCH (07:44)
[2018-09-23] MEDS: ASCORBIC ACID 500 MG TABLET GT SCH (08:11)
[2018-09-23] MEDS: methylPREDNISolone SOD SUCC 40 MG/ML VIAL IV SCH ×2 (08:11→16:42)
[2018-09-23] MEDS: ZINC SULFATE 220 MG CAPSULE GT SCH (08:11)
[2018-09-23] MEDS: MULTIVITAMINS,THERAGRAN 1 UDTAB TABLET GT SCH (08:11)
[2018-09-23] MEDS: FERROUS SULFATE (325 MG) 325 MG/TAB TABLET PO SCH ×2 (08:11→16:42)
[2018-09-23 08:12] LABS: OCCULT BLOOD STOOL NEGATIVE (NEGATIVE)
[2018-09-23] MEDS: ENOXAPARIN SODIUM 40 MG/0.4 ML DISP.SYRIN SQ SCH (08:13)
[2018-09-23] MEDS: PROSOURCE / PROSTAT (PYXIS) 30 ML UDC GT SCH ×2 (08:14→16:42)
[2018-09-23] MEDS: DOCUSATE SODIUM LIQ 100 MG/10 ML UDC GT SCH (09:00)
[2018-09-23] MEDS: TWOCAL HN 1,000 ML LIQUID GT SCH (10:50)
--- NOTE | 2018-09-23 12:32 | NUR ---
rn notes 0730-received patient from rn. patient remaisn on high flow 02, opens eyes to voice at times. no sign of pain. suctioning done safely, he moves head side to side when suctioned. [id number]-wubzlbr suctioned repositioned. bilateral nephrostomy tubes with adequate drain, kept tubes straight. 1200-seen by Dr. Ignacio earlier, he discussed plan of care with caregiver in the room.MD also updated of patient status.
[2018-09-23] MEDS: IV D5/0.45 NACL 1,000 ML IV PRN (14:31)
[2018-09-23 15:52] LABS: ABG BASE EXCESS 2.7 mmol/L; ABG OXYGEN SATURATION 96.6 % (92.0-98.5); ABG PCO2 42.4 mmHg (35.0-45.0); ABG PH 7.427 (7.350-7.450); ABG PO2 94.1 mmHg (75.0-100.0); AaDO2 178.5 mmHg; COHb 0.2 % (0.5-1.5); MetHb 0.5 % (0.0-1.5); O2Hb 95.9 % (94.0-97.0); SITE, ABG Left Radial; VENT MODE, BG HIGH FLOW N/C
[2018-09-23] MEDS: Z GUARD REMEDY 2 OZ OINT TP PRN (18:24)
--- NOTE | 2018-09-23 18:49 | NUR ---
rn notes 1400-patient remains on high flow 02. no sign of pain. 1630-patient was cleaned and repositioned earlier.patient noted hard top respond to light touch, moves sole of feet when stimulated. abg done, results within acceptable range. patient starts to open eyes and follows some commands ( in Farsi) given by caregiver.
--- NOTE | 2018-09-23 19:11 | NUR ---
rn notes patient resting. no sign of pain. bilateral nephrosotmy tubes with yellow drain. saturation up to 97%. report given to incoming rn for further care
--- NOTE | 2018-09-23 19:30 | NUR ---
PEER COUNSELOR NOTES RECEIVED BEDSIDE REPORT FROM DAY SHIFT NURSE. RECEIVED PATIENT IN BED, ASLEEP AT THIS TIME, ALERT TO SELF, OPENS EYES, NONVERBAL AT BASELINE. ON HIGH FLOW O2 @ 45% FIO2, 35LPM. TOLERATING WELL, NO SOB NOTED AT THIS TIME. BEDSIDE MONITOR SHOWS SINUS RHYTHM WITH 1ST DEGREE HB AND BBB, HR = 92 BPM. BILATERAL NEPHROSTOMY TUBES IN PLACE, DRAINING CLEAR YELLOW URINE VIA GRAVITY. GT PATENT AND INTACT, ONGOING TUBE FEEDINGS AT PRESCRIBED RATE TOLERATING WELL, MINIMAL GASTRIC RESIDUALS NOTED APPROXIMATELY 10 ML. IV SITES PATENT AND INTACT, FLUSHED WITH NS, NO PHLEBITIS OR REDNESS NOTED AT IV SITES. HOB KEPT ELEVATED FOR ASPIRATION PRECAUTIONS. BILATERAL HAND MITTENS IN PLACE, TEMPORARILY REMOVED TO CHECK PULSES AND SKIN, REAPPLIED. WILL CONTINUE TO CLOSELY MONITOR THE PATIENT
[2018-09-24] VITALS (26 sets, daily range): BP systolic 112–144; BP diastolic 55–67
[2018-09-24] MEDS: BLOOD SUGAR DIAGNOSTIC 1 EACH STRIP IN SCH ×4 (00:56→18:10)
[2018-09-24] MEDS: INSULIN REGULAR, HUMAN 100 UNIT/ML 3 ML VIAL SQ PRN ×4 (00:58→18:12)
[2018-09-24] MEDS: IPRATROPIUM NEB FS 0.5 MG/2.5 ML AMPUL.NEB NEB SCH ×4 (01:10→19:32)
[2018-09-24] MEDS: ALBUTEROL FS 2.5 MG/0.5 ML VIAL.NEB NEB SCH ×4 (01:10→19:32)
--- NOTE | 2018-09-24 04:00 | NUR ---
FUR JOINER NOTES FULL BED BATH RENDERED. WOUNDS/SKIN ISSUES PHOTOGRAPHED AND DOCUMENTED PER PROTOCOL. WILL CONTINUE CLOSE MONITORING
[2018-09-24 04:46] LABS: BASOPHILS # (AUTO) 0.1 /CMM (0.0-0.2); BASOPHILS % (AUTO) 0.6 % (0.0-2.0); EOSINOPHILS % (AUTO) 0.1 % (0.0-6.0); HEMATOCRIT 33 % (39-51); HEMOGLOBIN 10.4 g/dL (13.5-17.5); LYMPHOCYTES # (AUTO) 0.4 /CMM (0.8-4.8); LYMPHOCYTES % (AUTO) 3.4 % (20.0-44.0); MEAN CORPUSCULAR HGB CONC 32 g/dl (31.0-36.0); MEAN CORPUSCULAR VOLUME 93 fL (80-96); MONOCYTES # (AUTO) 0.5 /CMM (0.1-1.30); MONOCYTES % (AUTO) 3.8 % (2.0-12.0); NEUTROPHILS # (AUTO) 11.5 /CMM (1.8-8.9); NEUTROPHILS % (AUTO) 92.1 % (43.0-81.0); PLATELET COUNT (AUTO) 237 /CMM (150-450); RED BLOOD CELL COUNT(AUTO) 3.54 MIL/uL (4.5-6.0); WHITE BLOOD COUNT (AUTO) 12.5 K/uL (4.3-11.0)
[2018-09-24 04:58] LABS: CALCIUM, SERUM 9.2 mg/dL (8.5-10.1); CARBON DIOXIDE 28 mmol/L (21-32); CHLORIDE 111 mmol/L (98-107); CREATININE 0.6 mg/dL (0.6-1.3); GLUCOSE 167 mg/dL (74-106); PHOSPHORUS 3.3 mg/dL (2.5-4.9); POTASSIUM 4.8 mmol/L (3.5-5.1); SODIUM SERUM 146 mmol/L (136-145); UREA NITROGEN, BLOOD 31 mg/dL (7-18)
[2018-09-24] MEDS: AZTREONAM 1 G in IV NS 0.9% 100 ML IV SCH ×2 (05:44→12:01)
[2018-09-24] MEDS: IV D5/0.45 NACL 1,000 ML IV PRN ×2 (05:48→21:40)
--- NOTE | 2018-09-24 07:00 | NUR ---
ERGONOMIST CLSOING NOTES PATIENT CONTINUES ON HIGH FLOW O2 NASAL CANNULA @ 35LPM, 45% FIO2. TOTAL NEPHROTOMY TUBE OUTPUT = 660 ML, 400ML FROM LEFT AND 260ML FROM RIGHT. WILL ENDORSE THE PATIENT TO THE AM SHIFT NURSE FOR CONTINUITY OF CARE
--- NOTE | 2018-09-24 08:00 | NUR ---
ICU/RN AM SHIFT INITIAL NOTES RECEIVED PT ASLEEP IN BED, PT ALERT TO SELF, OPEN EYES, NON-VERBAL, NO GRIMACING, OR ACUTE RESPIRATORY DISTRESS. PT ON HI-FLOW O2 WITH 35 LPM/44% FIO2, SATURATING @ 96%, RHONCHI LUNG SOUNDS. ON TELE WITH SINUS RHYTHM, HR 92. IV SITES PATENT WITH ON GOING INFUSION OF D5,1/2NS @ 45CC/HR. BILATERAL NEPHROSTOMY TUBES INTACT, SECURED WITH TYPE NOTED MINIMAL YELLOW URINE OUTPUT. GTF ON GOING @ 45CC/HR, NO GASTRIC RESIDUAL NOTED, FLUSHED, PATENT. BILATERAL MITTENS IN PLACED, REMOVED TO CHECK FOR CIRCULATION AND COMFORT THEN PLACED BACK. SCHEUDLED AM MEDS PT TO BE GIVEN. CL WITHIN REACHED AND SAFETY MAINTAINED. ON GOING MONITORING.
[2018-09-24] MEDS: DOCUSATE SODIUM LIQ 100 MG/10 ML UDC GT SCH ×2 (08:19→17:13)
[2018-09-24] MEDS: PROSOURCE / PROSTAT (PYXIS) 30 ML UDC GT SCH ×2 (08:19→17:13)
[2018-09-24] MEDS: MULTIVITAMINS,THERAGRAN 1 UDTAB TABLET GT SCH (08:20)
[2018-09-24] MEDS: ZINC SULFATE 220 MG CAPSULE GT SCH (08:20)
[2018-09-24] MEDS: FERROUS SULFATE (325 MG) 325 MG/TAB TABLET PO SCH ×2 (08:20→17:13)
[2018-09-24] MEDS: PANTOPRAZOLE 40 MG/PACK PACK GT SCH (08:20)
[2018-09-24] MEDS: methylPREDNISolone SOD SUCC 40 MG/ML VIAL IV SCH ×2 (08:20→17:13)
[2018-09-24] MEDS: ASCORBIC ACID 500 MG TABLET GT SCH (08:20)
[2018-09-24] MEDS: ENOXAPARIN SODIUM 40 MG/0.4 ML DISP.SYRIN SQ SCH (08:21)
--- NOTE | 2018-09-24 09:30 | NUR ---
ICU/RN BEDBATH PT CLEAN, PRIVATE NURSE REQUESTED BED BATH, PERFORMED.
--- NOTE | 2018-09-24 12:00 | NUR ---
ICU/RN NOON ROUNDS NO ACUTE CHANGE OF CONDITION. ORAL CARE PROVIDED, REPOSITIONED. ON GOING MONITORING.
[2018-09-24] MEDS: TWOCAL HN 1,000 ML LIQUID GT SCH (12:07)
--- NOTE | 2018-09-24 13:50 | NUR ---
ICU/RN ROUNDS - DR. FOUNTAIN UPDATED PT'S CONDITION. PT SEEN AND EXAMINED BY DR. FOUNTAIN. NO NEW ORDER RECEIVED. MONITORING CONTINUED.
[2018-09-24 15:07] LABS: *SPE A/G RATIO 0.7 (0.7-1.7); *SPE ALBUMIN 2.3 g/dL (2.9-4.4); *SPE ALPHA-1-GLOBULIN 0.4 g/dL (0.0-0.4); *SPE ALPHA-2-GLOBULIN 1.2 g/dL (0.4-1.0); *SPE BETA GLOBULIN 0.9 g/dL (0.7-1.3); *SPE GLOBULIN, TOTAL 3.2 g/dL (2.2-3.9); *SPE M-SPIKE Not Observed g/dL (Not Observed); *SPEGAMMA GLOBULIN 0.7 g/dL (0.4-1.8)
--- NOTE | 2018-09-24 17:30 | NUR ---
ICU/RN AFTERNOON ROUNDS PM CARE PROVIDED. NO CHANGE OF CONDITION. PT'S DAUGHTER AT BEDSIDE INSISTING PT'S TRANSFER NOW, DEMANDING TO SPEAK TO STOCK RANCH SUPERVISOR. EXPLAINED TO HER THAT STOCK RANCH SUPERVISOR IS ON THE CASE AND THAT CASE MANAGEMENT IS TRYING TO ARRANGE THE TRANSFER BUT THERE SHOULD BE A BED AVAILABLE, FEELING FRUSTRATED PT'S DAUGHTER WENT TO STOCK RANCH SUPERVISORNUCLEAR SECURITY OFFICER.
--- NOTE | 2018-09-24 19:22 | NUR ---
ICU/RN AM SHIFT END NOTES NO ACUTE CHANGE OF CONDITION NOTED DURING THE SHIFT. ALL NEEDS MET. PT ENDORSED TO PM NURSE TO CONTINUE CARE. CL WITHIN REACHED AND SAFETY MAINTAINED.
--- NOTE | 2018-09-24 19:30 | NUR ---
APPLE PACKING HEADER INITIAL SHIFT NOTES RECEIVED PATIENT IN BED, AWAKE, NONVERBAL AT BASELINE, OPENS EYES, TRACKS. UNABLE TO VERBALIZE NEEDS. ON HIGH FLOW O2 NASAL CANNULA @ 35LPM, 45% FIO2, TOLERATING WELL, NO RESPIRATORY DISTRESS NOTED. RFA 20G IV PATENT AND INTACT, ONGOING IV FLUIDS AT PRESCRIBED RATE, SITE FREE FROM ANY S/S OF INFILTRATION OR PHLEBITIS. BILATERAL NEPHROSTOMY TUBES IN PLACE, DRAINING CLEAR YELLOW URINE TO DRAINAGE BAG. GT PATENT AND INTACT, ONGOING TUBE FEEDINGS, MINIMAL GASTRIC RESIDUALS. HOB KEPT ELEVATED FOR ASPIRATION PRECAUTIONS. WILL CONTINUE TO CLOSELY MONITOR
[2018-09-25] VITALS (24 sets, daily range): BP systolic 117–143; BP diastolic 57–73
[2018-09-25] MEDS: BLOOD SUGAR DIAGNOSTIC 1 EACH STRIP IN SCH ×4 (01:01→17:41)
[2018-09-25] MEDS: INSULIN REGULAR, HUMAN 100 UNIT/ML 3 ML VIAL SQ PRN ×4 (01:03→17:42)
[2018-09-25] MEDS: ALBUTEROL FS 2.5 MG/0.5 ML VIAL.NEB NEB SCH ×4 (01:36→20:08)
[2018-09-25] MEDS: IPRATROPIUM NEB FS 0.5 MG/2.5 ML AMPUL.NEB NEB SCH ×4 (01:36→20:08)
--- NOTE | 2018-09-25 04:00 | NUR ---
WARP TYING MACHINE TENDER NOTES NOTED WITH LARGE BM X1, PARTIAL BED BATH RENDERED, PATIENT TOLERATED WELL, WILL CONTINUE TO CLOSELY MONITOR
[2018-09-25 05:07] LABS: HEMATOCRIT 33 % (39-51); HEMOGLOBIN 10.4 g/dL (13.5-17.5); LYMPHOCYTES # (AUTO) 0.5 /CMM (0.8-4.8); LYMPHOCYTES % (AUTO) 3.9 % (20.0-44.0); MEAN CORPUSCULAR HGB CONC 32 g/dl (31.0-36.0); MEAN CORPUSCULAR VOLUME 92 fL (80-96); MONOCYTES # (AUTO) 0.6 /CMM (0.1-1.30); MONOCYTES % (AUTO) 5.1 % (2.0-12.0); NEUTROPHILS # (AUTO) 10.6 /CMM (1.8-8.9); PLATELET COUNT (AUTO) 244 /CMM (150-450); RED BLOOD CELL COUNT(AUTO) 3.58 MIL/uL (4.5-6.0); WHITE BLOOD COUNT (AUTO) 11.6 K/uL (4.3-11.0)
[2018-09-25 05:40] LABS: CALCIUM, SERUM 9.1 mg/dL (8.5-10.1); CARBON DIOXIDE 29 mmol/L (21-32); CHLORIDE 106 mmol/L (98-107); CREATININE 0.6 mg/dL (0.6-1.3); GLUCOSE 108 mg/dL (74-106); MAGNESIUM 1.9 mg/dL (1.8-2.4); PHOSPHORUS 3.4 mg/dL (2.5-4.9); POTASSIUM 4.5 mmol/L (3.5-5.1); SODIUM SERUM 143 mmol/L (136-145); UREA NITROGEN, BLOOD 30 mg/dL (7-18)
--- NOTE | 2018-09-25 06:00 | NUR ---
CASKET ASSEMBLER CLOSING NOTES UPEP 24 HOUR URINE COLLECTION STARTED @ 1800 ON 09/24/18, TO BE COMPLETED TODAY 09/25/18 @ 1800. 800ML OF CLEAR YELLOW URINE COLLECTED FROM LEFT AND RIGHT NEPHROSTOMY TUBES. RIGHT SIDE 200ML, LEFT SIDE 600ML Addendum: 09/25/18 at 0706 by HARMEET MCCALL RN PATIENT LAYING COMFORTABLY IN BED, CONTINUES ON HIGH FLOW NASAL CANNULA @ 35 LPM, 45% FIO2
--- NOTE | 2018-09-25 07:15 | NUR ---
WATER SYSTEMS ENGINEER OPENING NOTE RECEIVED REPORT FROM PM NURSE.PATIENT ALERT,OPEN EYES AND TRACKS. UNABLE TO VERBALIZE NEEDS. ON HIGH FLOW O2 NASAL CANNULA @ 35LPM, 45% FIO2, TOLERATING WELL, NO RESPIRATORY DISTRESS NOTED. RFA 20G IV PATENT AND INTACT, ONGOING IV FLUIDS AT PRESCRIBED RATE, SITE FREE FROM ANY S/S OF INFILTRATION OR PHLEBITIS. BILATERAL NEPHROSTOMY TUBES IN PLACE, DRAINING CLEAR YELLOW URINE TO DRAINAGE BAG. GT PATENT AND INTACT, ONGOING TUBE FEEDINGS, MINIMAL GASTRIC RESIDUALS. HOB KEPT ELEVATED FOR ASPIRATION PRECAUTIONS. SAFETY MEASURES IN PLACE.SEX3.WILL CONTINUE TO MONITOR.
[2018-09-25] MEDS: MULTIVITAMINS,THERAGRAN 1 UDTAB TABLET GT SCH (08:14)
[2018-09-25] MEDS: DOCUSATE SODIUM LIQ 100 MG/10 ML UDC GT SCH ×2 (08:14→16:27)
[2018-09-25] MEDS: methylPREDNISolone SOD SUCC 40 MG/ML VIAL IV SCH (08:14)
[2018-09-25] MEDS: ZINC SULFATE 220 MG CAPSULE GT SCH (08:14)
[2018-09-25] MEDS: FERROUS SULFATE (325 MG) 325 MG/TAB TABLET PO SCH ×2 (08:14→16:27)
[2018-09-25] MEDS: ASCORBIC ACID 500 MG TABLET GT SCH (08:14)
[2018-09-25] MEDS: PANTOPRAZOLE 40 MG/PACK PACK GT SCH (08:14)
[2018-09-25] MEDS: PROSOURCE / PROSTAT (PYXIS) 30 ML UDC GT SCH ×2 (08:15→16:27)
[2018-09-25] MEDS: ENOXAPARIN SODIUM 40 MG/0.4 ML DISP.SYRIN SQ SCH (08:15)
--- NOTE | 2018-09-25 10:30 | NUR ---
IMPLEMENTATION ADVISOR NOTE SEEN BY ,UPDATED ABOUT APTIENT CONDITION WITH LABS.NNO.WILL CONTINUE TO MONITOR.
--- NOTE | 2018-09-25 12:00 | NUR ---
FIBER TECHNOLOGIST NOTE' MADE AWARE ABOUT SON'S REQUEST TO CALL HIM.LEFT MESSAGE TO WITH PHONE NUMBER.NO NEED TO CHANGE NEPHROSTOMY TUBE PER .PATIENT TOLERATING O2 4L VIA NASAL CANULA.WILL CONTINUE TO MONITOR.
[2018-09-25] MEDS: IV D5/0.45 NACL 1,000 ML IV PRN (12:11)
--- NOTE | 2018-09-25 14:00 | NUR ---
STYLE ADVISOR NOTE DAUGHTER SUSY,WANT TO TALK TO EJ FROM BUSINESS OFFICE.CALL MADE AND LEFT MESSAGE .LEFT MESSAGE TO INA LAIRD OPTICAL INSTRUMENT ASSEMBLY SUPERVISOR ABOUT ASSISTANCE FO COMPLETING MEDICAL FORM
[2018-09-25] MEDS: TWOCAL HN 1,000 ML LIQUID GT SCH (17:42)
--- NOTE | 2018-09-25 18:20 | NUR ---
VALVE ASSEMBLER NOTE CALL MADE TO LAB FOR 24 HR URINE COLLECTION COMPLETION AND FOR GUARD CAPTAIN SPECIMEN.
--- NOTE | 2018-09-25 18:47 | NUR ---
HANDSTITCHING MACHINE COLLAR FELLER CLOSING NOTE PATIENT ALERT,OPEN EYES AND TRACKS. UNABLE TO VERBALIZE NEEDS. ON O2 4L VIA NASAL CANULA. TOLERATING WELL, NO RESPIRATORY DISTRESS NOTED. RFA 20G IV PATENT AND INTACT, ONGOING IV FLUIDS AT PRESCRIBED RATE, SITE FREE FROM ANY S/S OF INFILTRATION OR PHLEBITIS. BILATERAL NEPHROSTOMY TUBES IN PLACE, DRAINING CLEAR YELLOW URINE TO DRAINAGE BAG. GT PATENT AND INTACT, ONGOING TUBE FEEDINGS. HOB KEPT ELEVATED FOR ASPIRATION PRECAUTIONS. SAFETY MEASURES IN PLACE.SRX3.WILL ENDORSE TO PM NURSE FOR TYRA.
--- NOTE | 2018-09-25 19:30 | NUR ---
HOG STICKER INITIAL SHIFT NOTES RECEIVED PATIENT IN BED, AWAKE, NONVERBAL AT BASELINE, OPENS EYES, TRACKS. UNABLE TO VERBALIZE NEEDS. ON NASAL CANNULA @ 4LPM TOLERATING WELL, NO RESPIRATORY DISTRESS NOTED. RFA 20G IV PATENT AND INTACT, ONGOING IV FLUIDS AT PRESCRIBED RATE, SITE FREE FROM ANY S/S OF INFILTRATION OR PHLEBITIS. BILATERAL NEPHROSTOMY TUBES IN PLACE, DRAINING CLEAR YELLOW URINE TO DRAINAGE BAG. GT PATENT AND INTACT, ONGOING TUBE FEEDINGS, MINIMAL GASTRIC RESIDUALS. HOB KEPT ELEVATED FOR ASPIRATION PRECAUTIONS. WILL CONTINUE TO CLOSELY MONITOR
[2018-09-26] VITALS (26 sets, daily range): BP systolic 109–138; BP diastolic 55–69
--- NOTE | 2018-09-26 | NUR ---
FIRER ELECTRIC LOCOMOTIVE NOTES PATIENT MORE AWAKE, RESISTIVE TO CARE, PUSHING AWAY STAFFS' HANDS WHEN GETTING CLOSER.
[2018-09-26] MEDS: BLOOD SUGAR DIAGNOSTIC 1 EACH STRIP IN SCH ×5 (00:02→17:43)
--- NOTE | 2018-09-26 01:00 | NUR ---
ACIDITY TESTER NOTES PATIENT'S DAUGHTER AND SON CALLED, BOTH ASKED FOR UPDATE. LATEST VITAL SIGNS RELAYED. ALSO RELAYED THAT PATIENT IS MORE AWAKE THAN BEFORE.
[2018-09-26] MEDS: ALBUTEROL FS 2.5 MG/0.5 ML VIAL.NEB NEB SCH ×4 (01:20→19:30)
[2018-09-26] MEDS: IPRATROPIUM NEB FS 0.5 MG/2.5 ML AMPUL.NEB NEB SCH ×4 (01:20→19:30)
[2018-09-26] MEDS: IV D5/0.45 NACL 1,000 ML IV PRN ×2 (02:57→19:30)
[2018-09-26] MEDS: ACETAMINOPHEN 650 MG/20.3 ML UDC GT PRN ×3 (03:03→16:22)
[2018-09-26 04:34] LABS: BASOPHILS % (AUTO) 0.1 % (0.0-2.0); EOSINOPHILS % (AUTO) 0.3 % (0.0-6.0); HEMATOCRIT 34 % (39-51); HEMOGLOBIN 10.5 g/dL (13.5-17.5); LYMPHOCYTES # (AUTO) 0.7 /CMM (0.8-4.8); LYMPHOCYTES % (AUTO) 5.7 % (20.0-44.0); MEAN CORPUSCULAR HGB CONC 31 g/dl (31.0-36.0); MEAN CORPUSCULAR VOLUME 91 fL (80-96); MONOCYTES # (AUTO) 0.5 /CMM (0.1-1.30); MONOCYTES % (AUTO) 4.6 % (2.0-12.0); NEUTROPHILS # (AUTO) 10.4 /CMM (1.8-8.9); NEUTROPHILS % (AUTO) 89.3 % (43.0-81.0); PLATELET COUNT (AUTO) 232 /CMM (150-450); RED BLOOD CELL COUNT(AUTO) 3.69 MIL/uL (4.5-6.0); WHITE BLOOD COUNT (AUTO) 11.7 K/uL (4.3-11.0)
[2018-09-26 04:48] LABS: CALCIUM, SERUM 9.1 mg/dL (8.5-10.1); CARBON DIOXIDE 29 mmol/L (21-32); CHLORIDE 104 mmol/L (98-107); CREATININE 0.6 mg/dL (0.6-1.3); GLUCOSE 144 mg/dL (74-106); MAGNESIUM 1.7 mg/dL (1.8-2.4); PHOSPHORUS 3.1 mg/dL (2.5-4.9); POTASSIUM 3.9 mmol/L (3.5-5.1); SODIUM SERUM 140 mmol/L (136-145); UREA NITROGEN, BLOOD 27 mg/dL (7-18)
--- NOTE | 2018-09-26 06:00 | NUR ---
LOAN EXPEDITOR CLOSING SHIFT NOTES PATIENT RESTING IN BED, APPEARS COMFORTABLE. NO S/S OF DISTRESS, TOLERATING O2 VIA NC @ 4LPM WELL, NO S/S OF RESPIRATORY DISTRESS. WILL CONTINUE CLOSE MONITORING AND ENDORSE THE PATIENT TO THE AM SHIFT NURSE FOR CONTINUITY OF CARE Addendum: 09/26/18 at 0648 by HARMEET MCCALL RN TOTAL URINE OUTPUT FROM NEPHROSTOMY TUBES IS 780 ML. LEFT SIDE 500ML, RIGHT SIDE 280ML
[2018-09-26] MEDS: INSULIN REGULAR, HUMAN 100 UNIT/ML 3 ML VIAL SQ PRN (06:19)
[2018-09-26] MEDS: PANTOPRAZOLE 40 MG/PACK PACK GT SCH (07:30)
[2018-09-26] MEDS: PROSOURCE / PROSTAT (PYXIS) 30 ML UDC GT SCH ×2 (09:06→17:29)
[2018-09-26] MEDS: FERROUS SULFATE (325 MG) 325 MG/TAB TABLET PO SCH ×2 (09:06→17:29)
[2018-09-26] MEDS: MULTIVITAMINS,THERAGRAN 1 UDTAB TABLET GT SCH (09:06)
[2018-09-26] MEDS: ASCORBIC ACID 500 MG TABLET GT SCH (09:06)
[2018-09-26] MEDS: ZINC SULFATE 220 MG CAPSULE GT SCH (09:06)
[2018-09-26] MEDS: DOCUSATE SODIUM LIQ 100 MG/10 ML UDC GT SCH ×2 (09:06→17:29)
--- NOTE | 2018-09-26 09:29 | NUR ---
RECEIVED REPORT FROM PM NURSE.PATIENT ALERT,OPEN EYES AND TRACKS. UNABLE TO VERBALIZE NEEDS. ON 02 AT 4L TOLERATING WELL, NO RESPIRATORY DISTRESS NOTED. RFA 20G IV PATENT AND INTACT, ONGOING IV FLUIDS AT PRESCRIBED RATE, SITE FREE FROM ANY S/S OF INFILTRATION OR PHLEBITIS. BILATERAL NEPHROSTOMY TUBES IN PLACE, DRAINING CLEAR YELLOW URINE TO DRAINAGE BAG. GT PATENT AND INTACT, ONGOING TUBE FEEDINGS, MINIMAL GASTRIC RESIDUALS. HOB KEPT ELEVATED TO PREVENT ASPIRATION.FAMILY TAALKED ABOUT PT JUMPING AND GRIMACING WHEN TOUCING RIGH BACK WITH MD TOÑITO AWWRE NEW ORDER TO GIVE MORPHINE 2 MG IV Q 4HR.TYLENOL TWYLAVIN AT THIS TIME.
[2018-09-26] MEDS: ENOXAPARIN SODIUM 40 MG/0.4 ML DISP.SYRIN SQ SCH (09:59)
[2018-09-26] MEDS: MORPHINE SULFATE INJ 2 MG/ML DISP.SYRIN IM PRN ×2 (11:49→16:25)
[2018-09-26] MEDS: Magnesium 1GM/D5W 100ML PREMIX 100 ML IV SCH ×2 (12:00→13:45)
[2018-09-26] MEDS ORDERED: AZTREONAM 1 G in IV NS 0.9% 100 ML IV SCH (14:00)
--- NOTE | 2018-09-26 17:33 | NUR ---
Pt remains alert and awake temperature went from 100.6 this morning to 101.8 despite pt receiving tylenol.Pt moaning and grimacing when both urostomies tube site reds and warm. made aware of pt condition,son at bedside when pt medicated with tylenol and morphine 2mg q 4hrs,Son talkedt to and new order for new consult with infectious disease.Pt started abx.Daughter at bedside requesting that pt stayed on the floor secondary to pt condition.Pt due to be transfered to [facility] will continue to monitor.
--- NOTE | 2018-09-26 17:44 | NUR ---
1800: Pt blood sugar 108 no need for coverage
[2018-09-26] MEDS ORDERED: ACETAMINOPHEN LIQUID 325 MG/10.1 ML UDC PO PRN (18:30)
--- NOTE | 2018-09-26 18:58 | NUR ---
Pt bloode sugar 105 no need for coverage.Pt transfered to low level of care in tele per MD ordered.
--- NOTE | 2018-09-26 19:40 | NUR ---
MOBILE HEAVY EQUIPMENT MECHANIC NOTE RECEIVED PT AWAKE AND NON VERBAL. ON 3L OF O2 VIA FACE MASK D/T PT NOTED TO BE A MOUTH BREATHER. BREATHING UNLABORED. HOB ELEVATED AND ON ASPIRATION PRECAUTIONS. IV'S IN PLACE, CLEAN, DRY AND PATENT. BILATERAL MITTENS NOTED. BILATERAL NEPHROSTOMIES IN PLACE AND DRAINING. GT FEEDING INFUSING WITH 500 ML OF RESIDUALS NOTED. GT FEEDING NOW CLAMPED. BED ALARM ENABLED, LOCKED IN LOWEST POSITIONED. WILL CONTINUE TO MONITOR.
--- NOTE | 2018-09-26 19:53 | NUR ---
BREATHING TX NOT GIVEN DO TO HR 123. RN AT BEDSIDE. WILL CONTINUE TO MONITOR.
--- NOTE | 2018-09-26 20:00 | NUR ---
SENIOR ASSET MANAGER NOTE SPOKE WITH KONRAD FELIPE AND RECEIVED TELEPHONE CONSENT FOR CT ABDOMEN/PELVIS WITH CONTRAST.
[2018-09-26] MEDS ORDERED: IOHEXOL-300 100 ML VIAL IV ONE (20:06)
[2018-09-26] MEDS ORDERED: IV NS 0.9% 250 ML IV ONE (20:07)
[2018-09-26] MEDS ORDERED: CT SWABBABLE VALVE TRANS SET 1 EA INFUS.SET MC ONE (20:07)
--- NOTE | 2018-09-26 20:15 | NUR ---
PROGRAM SERVICES PLANNER NOTE PT TAKEN TO CT.
--- NOTE | 2018-09-26 20:30 | NUR ---
PUBLIC ADDRESS TECHNICIAN NOTE PT RETURNED FROM CT.
[2018-09-26] MEDS: MEROPENEM 500 MG in IV NS 0.9% 50 ML IV SCH (20:56)
[2018-09-26] MEDS: LINEZOLID RTU BAG 600 MG in PREMIX 1 EA IV SCH (21:09)
[2018-09-27] VITALS (16 sets, daily range): BP systolic 106–122; BP diastolic 50–67
[2018-09-27] MEDS: ALBUTEROL FS 2.5 MG/0.5 ML VIAL.NEB NEB SCH ×4 (01:11→19:59)
[2018-09-27] MEDS: IPRATROPIUM NEB FS 0.5 MG/2.5 ML AMPUL.NEB NEB SCH ×4 (01:11→19:59)
[2018-09-27] MEDS: MEROPENEM 500 MG in IV NS 0.9% 50 ML IV SCH (03:58)
[2018-09-27] MEDS: TWOCAL HN 1,000 ML LIQUID GT SCH (04:10)
[2018-09-27 04:28] LABS: BASOPHILS % (AUTO) 0.2 % (0.0-2.0); EOSINOPHILS % (AUTO) 0.8 % (0.0-6.0); HEMATOCRIT 35 % (39-51); HEMOGLOBIN 11.3 g/dL (13.5-17.5); LYMPHOCYTES # (AUTO) 0.8 /CMM (0.8-4.8); LYMPHOCYTES % (AUTO) 8.1 % (20.0-44.0); MEAN CORPUSCULAR HGB CONC 32 g/dl (31.0-36.0); MEAN CORPUSCULAR VOLUME 92 fL (80-96); MONOCYTES # (AUTO) 0.4 /CMM (0.1-1.30); MONOCYTES % (AUTO) 4.4 % (2.0-12.0); NEUTROPHILS # (AUTO) 8.4 /CMM (1.8-8.9); NEUTROPHILS % (AUTO) 86.5 % (43.0-81.0); PLATELET COUNT (AUTO) 215 /CMM (150-450); WHITE BLOOD COUNT (AUTO) 9.7 K/uL (4.3-11.0)
[2018-09-27 04:46] LABS: CALCIUM, SERUM 8.6 mg/dL (8.5-10.1); CARBON DIOXIDE 29 mmol/L (21-32); CHLORIDE 102 mmol/L (98-107); CREATININE 0.7 mg/dL (0.6-1.3); GLUCOSE 86 mg/dL (74-106); MAGNESIUM 1.9 mg/dL (1.8-2.4); PHOSPHORUS 4.2 mg/dL (2.5-4.9); POTASSIUM 4.2 mmol/L (3.5-5.1); SODIUM SERUM 137 mmol/L (136-145); UREA NITROGEN, BLOOD 22 mg/dL (7-18)
[2018-09-27] MEDS: ACETAMINOPHEN 650 MG/20.3 ML UDC GT PRN ×2 (05:08→12:02)
[2018-09-27] MEDS: BLOOD SUGAR DIAGNOSTIC 1 EACH STRIP IN SCH ×3 (05:25→18:06)
--- NOTE | 2018-09-27 06:59 | NUR ---
WARP TYING MACHINE TENDER NOTE REMAINED STABLE DURING SHIFT. NO ACUTE DISTRESS NOTED. ALL NEEDS ATTENDED TO PROMPTLY. REPOSITIONED Q2H. WILL ENDORSE TO NEXT SHIFT FOR CONTINUITY OF CARE.
--- NOTE | 2018-09-27 07:30 | NUR ---
ICU/RN: Pt received in stable condition, [place], periods of agitation and restlessness, attempts to hit staff. Reoriented.
[2018-09-27] MEDS: FERROUS SULFATE (325 MG) 325 MG/TAB TABLET PO SCH ×2 (08:05→17:07)
[2018-09-27] MEDS: PROSOURCE / PROSTAT (PYXIS) 30 ML UDC GT SCH ×2 (08:05→17:08)
[2018-09-27] MEDS: DOCUSATE SODIUM LIQ 100 MG/10 ML UDC GT SCH ×2 (08:05→17:07)
[2018-09-27] MEDS: LINEZOLID RTU BAG 600 MG in PREMIX 1 EA IV SCH ×2 (08:05→22:23)
[2018-09-27] MEDS: PANTOPRAZOLE 40 MG/PACK PACK GT SCH (08:05)
[2018-09-27] MEDS: ZINC SULFATE 220 MG CAPSULE GT SCH (08:05)
[2018-09-27] MEDS: MULTIVITAMINS,THERAGRAN 1 UDTAB TABLET GT SCH (08:05)
[2018-09-27] MEDS: ENOXAPARIN SODIUM 40 MG/0.4 ML DISP.SYRIN SQ SCH (08:06)
[2018-09-27] MEDS: ASCORBIC ACID 500 MG TABLET GT SCH (08:07)
--- NOTE | 2018-09-27 08:45 | NUR ---
ICU/RN: Dr Noel at bedside, updated on pt status. Labs dw . Informed of high residuals overnight. Restarted at 20mls/hr now at 30mls/hr. Afebrile overnight.
[2018-09-27] MEDS: IV D5/0.45 NACL 1,000 ML IV PRN (09:59)
--- NOTE | 2018-09-27 12:00 | NUR ---
ICU/RN: Tepid bed bath, tylenol administered for temperature control. Pt noted with mucoid stool. Wound care rendered.
[2018-09-27] MEDS: MEROPENEM 1 G in IV NS 0.9% 100 ML IV SCH ×2 (12:02→22:24)
--- NOTE | 2018-09-27 12:25 | NUR ---
ICU/RN: Report given to KRYSTINA weld engineer Soon. Pt in stable condition. Cooling measures in place. VSS. Belongings transferred with pt; hearing aids with caregiver. Addendum: 09/27/18 at 1346 by MIRELLA LARA RN [place], pt son notified of transfer, questions answered.
--- NOTE | 2018-09-27 13:15 | NUR ---
[facility] DIESEL ENGINE MECHANIC NOTE PATIENT RECEIVED FROM [facility] ICU. REPORT TAKEN FROM REGIONAL DIRECTOR MANNY. PATIENT A/O X 1 W/ OCCASSIONAL EYE OPENING. NO SOB OR ACUTE DISTRESS NOTED. ON 4 LITERS 02 VIA MASK. ADMITTING DIAGNOSIS COPD EXACERBATION. ON TELE ST 90-100. BP 109/55, RR 20, SPO2 98%, TEMP 97.3. G-TUBE INTACT AND PATENT WITH 5ML RESIDUAL NOTED. TUBE FEEDING RUNNING TWO BOAZ @ 40ML/HR. RFA IV INTACT AND PATENT. LFA IV INTACT AND PATENT INFUSING MERREM @ 33.33 ML/HR. RT TO SEE PATIENT CYNTHIA. PATIENT CLEAN AND DRY. SAFETY MEASURES IN PLACE, BED IN LOW LOCKED POSITION, CALL LIGHT WITHIN REACH. BED ALARM ON. .
--- NOTE | 2018-09-27 15:57 | NUR ---
KRYSTINA RN NOTE RT ASSESSED PATIENT. MASK AND O2 SETTING CHANGED, SPO2 92%.
--- NOTE | 2018-09-27 15:58 | NUR ---
[facility]INA RN NOTE PATIENT DAUGHTER CALLED AND ASKED THAT PATIENT BE PUT IN ROOM CLOSER TO NURSES STATION. RN INFORMED DAUGHTER THAT PATIENT CAN BE PUT IN ROOM 105 AT APPROXIMATELY 5PM WHEN CURRENT PATIENT IS D/C AND ROOM IS PREPARED.
--- NOTE | 2018-09-27 19:47 | NUR ---
KRYSTINA RN CLOSING NOTE PATIENT IN BED. A/O X 1 W/ OCCASSIONAL EYE OPENING. NO SOB OR ACUTE DISTRESS NOTED. ON 6 LITERS VENTURI MASK @ 30%. SPO2 92%. ON TELE ST 90-100. BP 109/55, RR 20, SPO2 98%, TEMP 97.3. G-TUBE INTACT AND PATENT WITH 5ML RESIDUAL NOTED. TUBE FEEDING RUNNING TWO BOAZ @ 30ML/HR. RFA IV INTACT AND PATENT. LFA IV INTACT AND PATENT. RT TO SEE PATIENT CYNTHIA. PATIENT CLEAN AND DRY. SAFETY MEASURES IN PLACE, BED IN LOW LOCKED POSITION, CALL LIGHT WITHIN REACH. BED ALARM ON. CARE ENDORSED TO RAILCAR SWITCHMAN RN. .
--- NOTE | 2018-09-27 20:00 | NUR ---
RN INITIAL NOTE RECEIVED PATIENT IN BED. A/O X 1 W/ OCCASSIONAL EYE OPENING. NO SOB OR ACUTE DISTRESS NOTED. ON 6 LITERS VENTURI MASK @ 30%. SPO2 92%. ON TELE ST 107. G-TUBE INTACT AND PATENT WITH 5ML RESIDUAL NOTED. TUBE FEEDING RUNNING TWO BOAZ @ 30ML/HR. RFA IV INTACT AND PATENT WITH FLUIDS INFUSING ORDERED. LFA IV INTACT AND PATENT. ALL SAFETY MEASURES IN PLACE, BED IN LOW LOCKED POSITION, CALL LIGHT WITHIN REACH. BED ALARM ON. WILL CON TO MONITOR. .
--- NOTE | 2018-09-27 22:00 | NUR ---
RN NOTES PT APPROXIMALLY 2220 PT HR WENT TO 210, PT WAS ASYMPTOMATICS. EKG WAS ORDERED, WAS PAGED. Addendum: 09/28/18 at 0444 by KADI GALLARDO RN Please disregard this note it was written for another pt
--- NOTE | 2018-09-27 23:10 | NUR ---
FRANCINE NOTES EKG WAS DONE AND SHOULD PT TO BE ATRIAL FIBRILLATION WITH RAPID VENTRICULAR RESPONSE. HR WAS 165 bpm. MD WAS NOTIFIED AND RESULTS WAS FORWARDED TO MD. Addendum: 09/28/18 at 0444 by KADI GALLARDO RN Please disregard this note it was written for another pt
[2018-09-28] VITALS: BP 115/57
[2018-09-28] MEDS: BLOOD SUGAR DIAGNOSTIC 1 EACH STRIP IN SCH ×5 (00:58→23:14)
[2018-09-28] MEDS: ALBUTEROL FS 2.5 MG/0.5 ML VIAL.NEB NEB SCH ×4 (01:41→19:18)
[2018-09-28] MEDS: IPRATROPIUM NEB FS 0.5 MG/2.5 ML AMPUL.NEB NEB SCH ×4 (01:41→19:18)
[2018-09-28 04:00] VITALS: BP 108/56
[2018-09-28] MEDS: MEROPENEM 1 G in IV NS 0.9% 100 ML IV SCH ×3 (04:20→20:03)
[2018-09-28] MEDS: IV D5/0.45 NACL 1,000 ML IV PRN (05:06)
--- NOTE | 2018-09-28 06:38 | NUR ---
RN CLOSING NOTES NO CHANGE IN PTS CONDITION. PATIENT IN BED. A/O X 1 W/ OCCASIONAL EYE OPENING. NO SOB OR ACUTE DISTRESS NOTED. ON 6 LITERS VENTURI MASK @ 30%. SPO2 92%. ON TELE HR 120S, G-TUBE INTACT AND PATENT WITH 10ML RESIDUAL NOTED. TUBE FEEDING RUNNING TWO BOAZ @ 30ML/HR. RFA IV INTACT AND PATENT. LFA IV INTACT AND PATENT. SAFETY MEASURES IN PLACE, BED IN LOW LOCKED POSITION, CALL LIGHT WITHIN REACH. BED ALARM ON. CARE ENDORSED TO AM SHIFT RN. .
[2018-09-28 07:06] LABS: BASOPHILS # (AUTO) 0.1 /CMM (0.0-0.2); BASOPHILS % (AUTO) 0.5 % (0.0-2.0); EOSINOPHILS % (AUTO) 0.6 % (0.0-6.0); HEMATOCRIT 33 % (39-51); HEMOGLOBIN 10.8 g/dL (13.5-17.5); LYMPHOCYTES % (AUTO) 9.2 % (20.0-44.0); MEAN CORPUSCULAR HGB CONC 32 g/dl (31.0-36.0); MEAN CORPUSCULAR VOLUME 90 fL (80-96); MONOCYTES # (AUTO) 0.4 /CMM (0.1-1.30); NEUTROPHILS # (AUTO) 9.4 /CMM (1.8-8.9); NEUTROPHILS % (AUTO) 85.7 % (43.0-81.0); PLATELET COUNT (AUTO) 225 /CMM (150-450); WHITE BLOOD COUNT (AUTO) 10.9 K/uL (4.3-11.0)
[2018-09-28 07:22] LABS: CALCIUM, SERUM 8.6 mg/dL (8.5-10.1); CARBON DIOXIDE 28 mmol/L (21-32); CHLORIDE 103 mmol/L (98-107); CREATININE 0.7 mg/dL (0.6-1.3); GLUCOSE 113 mg/dL (74-106); PHOSPHORUS 2.5 mg/dL (2.5-4.9); POTASSIUM 3.8 mmol/L (3.5-5.1); SODIUM SERUM 138 mmol/L (136-145); UREA NITROGEN, BLOOD 16 mg/dL (7-18)
[2018-09-28 08:00] VITALS: BP 134/68
[2018-09-28] MEDS: LINEZOLID RTU BAG 600 MG in PREMIX 1 EA IV SCH ×2 (08:25→20:08)
[2018-09-28] MEDS: MULTIVITAMINS,THERAGRAN 1 UDTAB TABLET GT SCH (08:25)
[2018-09-28] MEDS: PANTOPRAZOLE 40 MG/PACK PACK GT SCH (08:26)
[2018-09-28] MEDS: FERROUS SULFATE (325 MG) 325 MG/TAB TABLET PO SCH ×2 (08:26→18:41)
[2018-09-28] MEDS: PROSOURCE / PROSTAT (PYXIS) 30 ML UDC GT SCH ×2 (08:26→18:40)
[2018-09-28] MEDS: ASCORBIC ACID 500 MG TABLET GT SCH (08:26)
[2018-09-28] MEDS: ZINC SULFATE 220 MG CAPSULE GT SCH (08:26)
[2018-09-28] MEDS: DOCUSATE SODIUM LIQ 100 MG/10 ML UDC GT SCH ×2 (08:26→17:00)
[2018-09-28] MEDS: ENOXAPARIN SODIUM 40 MG/0.4 ML DISP.SYRIN SQ SCH (08:27)
--- NOTE | 2018-09-28 08:27 | NUR ---
bobby wells notes holding lovenox as platelets are 90 L and pt will have bone marrow biopsy today. Addendum: 09/28/18 at 1207 by JUAN CARLOS NELSON RN amend to note: platelets not low. dr sierra aware lovenox is held for bone marrow biopsy
--- NOTE | 2018-09-28 08:28 | NUR ---
bobby rn notes holding colace as pt has order to collect stool for cdiff.
[2018-09-28 09:29] LABS: LYMPHOCYTES % (MANUAL) 10 % (16-48); MONOCYTES % (MANUAL) 8 % (0-11.0); NEUTROPHILS % (MANUAL) 82 (42-76)
--- NOTE | 2018-09-28 09:45 | NUR ---
WOUND CARE CONSULT: RECEIVED ANOTHER WOUND CONSULT. PT PRESENTS WITH BILATERAL NEPHROSTOMY TUBES WITH SCANT AMOUNT OF BROWN DRAINAGE AROUND RT SIDE NEPHROSTOMY TUBE, NO ODOR. DEFER TO MD/CLOTH SECONDS SORTER. ALL SKIN PROTECTION MEASURES IN PLACE AND DISCUSSED WITH NURSING STAFF. CURRENT DIMA SCORE IS 13. MD IN AGREEMENT WITH PLAN OF CARE. WILL SEE PRN.
[2018-09-28 12:00] VITALS: BP 126/63
[2018-09-28] MEDS: MORPHINE SULFATE INJ 2 MG/ML DISP.SYRIN IM PRN (15:47)
[2018-09-28 16:00] VITALS: BP 116/59
[2018-09-28] MEDS ORDERED: LIDOCAINE 1% INJ 50 ML MDV IJ ONE (16:00)
[2018-09-28 17:18] LABS: BASOPHILS # (AUTO) 0.1 /CMM (0.0-0.2); BASOPHILS % (AUTO) 0.6 % (0.0-2.0); EOSINOPHILS % (AUTO) 0.4 % (0.0-6.0); HEMATOCRIT 35 % (39-51); HEMOGLOBIN 11.2 g/dL (13.5-17.5); LYMPHOCYTES % (AUTO) 9.7 % (20.0-44.0); MEAN CORPUSCULAR HGB CONC 32 g/dl (31.0-36.0); MEAN CORPUSCULAR VOLUME 90 fL (80-96); MONOCYTES # (AUTO) 0.4 /CMM (0.1-1.30); MONOCYTES % (AUTO) 4.4 % (2.0-12.0); NEUTROPHILS # (AUTO) 8.5 /CMM (1.8-8.9); NEUTROPHILS % (AUTO) 84.9 % (43.0-81.0); PLATELET COUNT (AUTO) 215 /CMM (150-450); RED BLOOD CELL COUNT(AUTO) 3.87 MIL/uL (4.5-6.0)
[2018-09-28 18:23] LABS: BAND % (MANUAL) 5 % (0.0-5.0); LYMPHOCYTES % (MANUAL) 11 % (16-48); MONOCYTES % (MANUAL) 3 % (0-11.0); NEUTROPHILS % (MANUAL) 81 (42-76)
[2018-09-28] MEDS: INSULIN REGULAR, HUMAN 100 UNIT/ML 3 ML VIAL SQ PRN (18:29)
--- NOTE | 2018-09-28 19:19 | NUR ---
TD RN NOTES RECEIVED PT ON BED . A/O X1. ON TELE MONITOR ST 102. ON VENTURI MASK 6LPM SATURATING @ 92%. NO RESPIRATORY DISTRESS NOTED. IV ACCESS ON RFA G20 D51/2 NS @ 75CC/HR. IV ACCESS PATENT AND INTACT. GTUBE FEEDING @ 30CC/HR NO RESIDUAL NOTED. HEAD OF BED ELEVATED. SIDE RAILS UP. CALL LIGHT WITHIN REACH, BED ALARM ON, WILL CONTINUE TO MONITOR PT CLOSELY.
--- NOTE | 2018-09-28 19:25 | NUR ---
KRYSTINA RN END OF SHIFT NOTES PT ENDORSED TO PM NURSE FOR TYRA. PT STABLE. FAMILY AT BEDSIDE. COMMUNICATED WITH PM NURSE FAMILY'S WISHES TO HAVE THEM CALL FOR RESULTS OF BONE MARROW BIOPSY. ALL NEEDS ATTENDED TO. BED IN LOCKED/LOWEST POSITION. CALL LIGHT IN REACH.
[2018-09-28 20:00] VITALS: BP 125/63
[2018-09-28] MEDS: TWOCAL HN 1,000 ML LIQUID GT SCH (23:28)
[2018-09-29] VITALS: BP 116/58
[2018-09-29] MEDS: ALBUTEROL FS 2.5 MG/0.5 ML VIAL.NEB NEB SCH ×4 (01:10→19:17)
[2018-09-29] MEDS: IPRATROPIUM NEB FS 0.5 MG/2.5 ML AMPUL.NEB NEB SCH ×4 (01:10→19:17)
[2018-09-29] MEDS: IV D5/0.45 NACL 1,000 ML IV PRN (01:28)
[2018-09-29 04:00] VITALS: BP 131/61
[2018-09-29] MEDS: BLOOD SUGAR DIAGNOSTIC 1 EACH STRIP IN SCH ×3 (05:02→17:26)
[2018-09-29] MEDS: MEROPENEM 1 G in IV NS 0.9% 100 ML IV SCH ×3 (05:02→21:34)
[2018-09-29 06:26] LABS: BASOPHILS % (AUTO) 0.1 % (0.0-2.0); EOSINOPHILS % (AUTO) 0.5 % (0.0-6.0); HEMATOCRIT 32 % (39-51); HEMOGLOBIN 10.3 g/dL (13.5-17.5); LYMPHOCYTES % (AUTO) 9.5 % (20.0-44.0); MEAN CORPUSCULAR HGB CONC 32 g/dl (31.0-36.0); MEAN CORPUSCULAR VOLUME 90 fL (80-96); MONOCYTES # (AUTO) 0.6 /CMM (0.1-1.30); MONOCYTES % (AUTO) 5.7 % (2.0-12.0); NEUTROPHILS % (AUTO) 84.2 % (43.0-81.0); PLATELET COUNT (AUTO) 179 /CMM (150-450); RED BLOOD CELL COUNT(AUTO) 3.52 MIL/uL (4.5-6.0); WHITE BLOOD COUNT (AUTO) 10.7 K/uL (4.3-11.0)
[2018-09-29 06:30] LABS: CALCIUM, SERUM 8.9 mg/dL (8.5-10.1); CARBON DIOXIDE 28 mmol/L (21-32); CHLORIDE 103 mmol/L (98-107); CREATININE 0.6 mg/dL (0.6-1.3); GLUCOSE 112 mg/dL (74-106); MAGNESIUM 1.7 mg/dL (1.8-2.4); PHOSPHORUS 2.7 mg/dL (2.5-4.9); POTASSIUM 3.9 mmol/L (3.5-5.1); SODIUM SERUM 139 mmol/L (136-145); UREA NITROGEN, BLOOD 16 mg/dL (7-18)
--- NOTE | 2018-09-29 07:08 | NUR ---
TD RN NOTES NO ACUTE CHANGES NOTED DURING THE SHIFT. NO RESPIRATORY DISTRESS NOTED. PT MORE ALERT AND RESPONSIVE, TRYING TO REMOVE VENTURI MASK. WILL ENDORSE TO THE AM NURSE FOR CONTINUITY OF CARE.
--- NOTE | 2018-09-29 07:16 | NUR ---
RN KRYSTINA NOTES RECEIVED BEDSIDE REPORT PATIENT SLEEPING ABLE TO AROUSE WITH VOICE AND TOUCH. FARSI SPEAKING. SINUS TACHY ON MONITOR 100'S. BILATERAL NEPHROSTOMY BAGS DRAINING CLEAR YELLOW URINE. BILATERAL MITTENS FOR PULLING AT TUBES AND LINES. 2 BOAZ HN RUNNING @ 40 ML/HR. IV TO (Rr HAND D5 1/2 NS @ 75 ML/HR. SAFETY AND ASPIRATION PRECAUTIONS IN PLACE BED IN LOW POSITION. CALL LIGHT WITHIN REACH WILL CONT TO MONITOR ACCORDINGLY
[2018-09-29 08:00] VITALS: BP 133/65
[2018-09-29] MEDS: ZINC SULFATE 220 MG CAPSULE GT SCH (08:11)
[2018-09-29] MEDS: ASCORBIC ACID 500 MG TABLET GT SCH (08:11)
[2018-09-29] MEDS: FERROUS SULFATE (325 MG) 325 MG/TAB TABLET PO SCH ×2 (08:11→16:44)
[2018-09-29] MEDS: PANTOPRAZOLE 40 MG/PACK PACK GT SCH (08:11)
[2018-09-29] MEDS: MULTIVITAMINS,THERAGRAN 1 UDTAB TABLET GT SCH (08:12)
[2018-09-29] MEDS: DOCUSATE SODIUM LIQ 100 MG/10 ML UDC GT SCH ×2 (08:12→16:44)
[2018-09-29] MEDS: PROSOURCE / PROSTAT (PYXIS) 30 ML UDC GT SCH (08:13)
[2018-09-29] MEDS: ENOXAPARIN SODIUM 40 MG/0.4 ML DISP.SYRIN SQ SCH (08:15)
[2018-09-29] MEDS: LINEZOLID 600 MG TABLET GT SCH ×2 (08:55→21:34)
[2018-09-29 09:49] LABS: BAND % (MANUAL) 5 % (0.0-5.0); EOSINOPHILS % (MANUAL) 2 % (0-4); LYMPHOCYTES % (MANUAL) 10 % (16-48); MONOCYTES % (MANUAL) 5 % (0-11.0); MYELOCYTES % 2 % (0-0); NEUTROPHILS % (MANUAL) 76 (42-76)
[2018-09-29] MEDS: Magnesium 1GM/D5W 100ML PREMIX 100 ML IV SCH ×2 (11:28→12:33)
[2018-09-29 12:00] VITALS: BP 131/62
[2018-09-29] MEDS: INSULIN REGULAR, HUMAN 100 UNIT/ML 3 ML VIAL SQ PRN ×2 (12:18→17:26)
[2018-09-29 16:00] VITALS: BP 128/65
[2018-09-29] MEDS: MORPHINE SULFATE INJ 2 MG/ML DISP.SYRIN IM PRN (16:45)
--- NOTE | 2018-09-29 18:21 | NUR ---
RN KRYSTINA NOTES PATIENT IMPROVING THROUGHOUT SHIFT. NO SIGNS OR SYMPTOMS OF RESPIRATORY DISTRESS 96-98% ON 2 LTRS NASAL CANNULA. NO C/O PAIN. A/O X 3. SINUS ON THE MONITOR IN 60'S. CURRENTLY HAVING HD. INCONTINENT /ANURIC . APPETITE GOOD NO N/V/D NOTED 1000 ML FLUID RESTRICTION. WOUND CONSULT ORDERED MEPILEX AND ZGAURD APPLIED TO SACRAL. IV TO RIGHT HAND # [address] RIGHT FEMORAL TEMP LINE FOR HD . NO EPISODES OF HYPO/HYPERGLYCEMIA NOTED. KEPT CLEAN AND DRY REPOSITIONED Q2 HRS. SAFETY PRECAUTIONS IN PLACE BED IN LOW POSITION CALL LIGHT WITHIN REACH. Addendum: 09/29/18 at 1836 by ANCA MAE RN CHARTED ON WRONG PATIENT
--- NOTE | 2018-09-29 18:37 | NUR ---
RN KRYSTINA NOTES PATIENT LETHARGIC THROUGHOUT SHIFT. A/O X1 PATIENT SPEECH GARBLED SINUS TACHY ON MONITOR 100'S VITALS STABLE. NO SIGNS OR SYMPTOMS OF REPARATORY DISTRESS 6 LTRS ON VENTURI MASK @ 8 LTRS. FAMILY AT BEDSIDE WITH CONCERNS IN REGARDS TO BONE BIOPSY INFORMED THEM IT WILL NOT BE READ TILL MONDAY PT HAS TREE AND SHRUB TECHNICIAN AT BEDSIDE THROUGHOUT THE DAY. INCONTINENT OF BOWEL BILATERAL NEPHROSTOMY WITH GOOD OUTPUT. TOLERATING GTF 2 BOAZ @45 ML/HR WITH NO N/V/D. OR RESIDUAL. IVF D51/2 NS RUNNING IN LEFT HAND # 22 GAUGE. REPOSITIONED FOR COMFORT. MITTEN OF AT THIS TIME. NO EPISODES OF HYPER OR HYPOGLYCEMIA NOTED.SAFETY AND ASPIRATION PRECAUTIONS IN PLACE BED IN LOW POSITION CALL LIGHT WITHIN REACH. .
--- NOTE | 2018-09-29 19:23 | NUR ---
report endorsed to noc
[2018-09-29 20:00] VITALS: BP 123/66
--- NOTE | 2018-09-29 20:00 | NUR ---
PT IV INFILTRATED AND SEVERAL ATTEMPTS PERFORMED BY PRIMARY RN AND CHARGE NURSE WERE UNSUCCESSFUL. RECEIVED ORDERS FROM MARY DRAKE NP FOR INSERTION OF MIDLINE. AWAITING MIDLINE NURSE ARRIVAL.
--- NOTE | 2018-09-29 21:30 | NUR ---
MIDLINE RN AT BEDSIDE WITH SUCCESSFUL PLACEMENT OF MIDLINE IN THE UPPER RIGHT ARM.
[2018-09-30] VITALS: BP 124/67
[2018-09-30] MEDS: BLOOD SUGAR DIAGNOSTIC 1 EACH STRIP IN SCH ×4 (00:52→17:40)
[2018-09-30] MEDS: IV D5/0.45 NACL 1,000 ML IV PRN ×2 (00:56→15:52)
[2018-09-30] MEDS: ALBUTEROL FS 2.5 MG/0.5 ML VIAL.NEB NEB SCH ×4 (01:06→19:48)
[2018-09-30] MEDS: IPRATROPIUM NEB FS 0.5 MG/2.5 ML AMPUL.NEB NEB SCH ×4 (01:06→19:48)
[2018-09-30 04:00] VITALS: BP 111/56
[2018-09-30] MEDS: MORPHINE SULFATE INJ 2 MG/ML DISP.SYRIN IM PRN (04:28)
[2018-09-30 06:42] LABS: BASOPHILS % (AUTO) 0.3 % (0.0-2.0); EOSINOPHILS % (AUTO) 0.5 % (0.0-6.0); HEMATOCRIT 33 % (39-51); HEMOGLOBIN 10.4 g/dL (13.5-17.5); LYMPHOCYTES % (AUTO) 10.6 % (20.0-44.0); MEAN CORPUSCULAR HGB CONC 32 g/dl (31.0-36.0); MEAN CORPUSCULAR VOLUME 92 fL (80-96); MONOCYTES # (AUTO) 0.6 /CMM (0.1-1.30); MONOCYTES % (AUTO) 6.7 % (2.0-12.0); NEUTROPHILS # (AUTO) 7.5 /CMM (1.8-8.9); NEUTROPHILS % (AUTO) 81.9 % (43.0-81.0); PLATELET COUNT (AUTO) 204 /CMM (150-450); RED BLOOD CELL COUNT(AUTO) 3.58 MIL/uL (4.5-6.0); WHITE BLOOD COUNT (AUTO) 9.2 K/uL (4.3-11.0)
[2018-09-30 06:45] LABS: CALCIUM, SERUM 8.6 mg/dL (8.5-10.1); CARBON DIOXIDE 28 mmol/L (21-32); CHLORIDE 104 mmol/L (98-107); CREATININE 0.7 mg/dL (0.6-1.3); GLUCOSE 129 mg/dL (74-106); MAGNESIUM 2.1 mg/dL (1.8-2.4); PHOSPHORUS 2.5 mg/dL (2.5-4.9); POTASSIUM 4.2 mmol/L (3.5-5.1); SODIUM SERUM 138 mmol/L (136-145); UREA NITROGEN, BLOOD 15 mg/dL (7-18)
--- NOTE | 2018-09-30 07:25 | NUR ---
RN KRYSTINA OPENING RECEIVED BEDSIDE REPORT. PATIENT A/O X 1-2 FARSI SPEAKING. NO SIGNS OR SYMPTOMS OF RESPIRATORY DISTRESS SATURATING 94% ON 6 LTRS VENTURI MASK. NO S/S OF PAIN NOTED. BILATERAL SOFT MITTENS APPLIED FOR PULLING ON LINES AND TUBES. BILATERAL NEPHROSTOMY DRAINING CLEAR YELLOW URINE. MIDLINE TO VASQUEZ # 18 GAUGE RUNNING D5 1/2 NS @ 75 ML/HR. TOLERATING GTF 2CAL @ 45 ML/HR NO N/V/D. SAFETY AND ASPIRATION PRECAUTIONS IN PLACE BED IN LOW POSITION . WILL CONT TO MONITOR APPROPRIATELY.
[2018-09-30 08:00] VITALS: BP_SYST 113; BP_DIAS 51; BP_DIAS 56
[2018-09-30 08:38] LABS: BAND % (MANUAL) 6 % (0.0-5.0); LYMPHOCYTES % (MANUAL) 5 % (16-48); MONOCYTES % (MANUAL) 7 % (0-11.0); MYELOCYTES % 1 % (0-0); NEUTROPHILS % (MANUAL) 81 (42-76)
[2018-09-30] MEDS: DOCUSATE SODIUM LIQ 100 MG/10 ML UDC GT SCH ×2 (08:46→16:38)
[2018-09-30] MEDS: FERROUS SULFATE (325 MG) 325 MG/TAB TABLET PO SCH ×2 (08:46→16:38)
[2018-09-30] MEDS: ASCORBIC ACID 500 MG TABLET GT SCH (08:46)
[2018-09-30] MEDS: MULTIVITAMINS,THERAGRAN 1 UDTAB TABLET GT SCH (08:46)
[2018-09-30] MEDS: SULFAMETH/TRIMETH 800/160 MG 1 UDTAB TABLET PEG SCH ×2 (08:46→21:30)
[2018-09-30] MEDS: PANTOPRAZOLE 40 MG/PACK PACK GT SCH (08:46)
[2018-09-30] MEDS: ZINC SULFATE 220 MG CAPSULE GT SCH (08:46)
[2018-09-30] MEDS: ENOXAPARIN SODIUM 40 MG/0.4 ML DISP.SYRIN SQ SCH (08:48)
[2018-09-30] MEDS: ACETAMINOPHEN 650 MG/20.3 ML UDC GT PRN (10:13)
[2018-09-30 12:00] VITALS: BP 109/55
[2018-09-30] MEDS: INSULIN REGULAR, HUMAN 100 UNIT/ML 3 ML VIAL SQ PRN ×2 (12:12→17:41)
--- NOTE | 2018-09-30 12:49 | NUR ---
ORDER FOR CT FOR RIGHT HILAR MASS . RADIOLOGY UNABLE TO PERFORM TEST PATIENT NOT ABLE TO SIT STILL
[2018-09-30 16:00] VITALS: BP 105/60
--- NOTE | 2018-09-30 18:32 | NUR ---
RN KRYSTINA NOTES NO SIGNIFICANT CHANGES THROUGHOUT THE SHIFT. PATIENT TOLERATING 4 LTRS HUMIDIFIED O2 VIA NASAL CANNULA. NO S/S OF ACUTE PAIN NOTED.CONT TO BE SINUS TACHY ON MONITOR 120'S. A/O X1 EXTREMELY LETHARGIC AND UNABLE TO VERBALIZE NEEDS. ARTIFICIAL INSEMINATION TECHNICIAN AT BEDSIDE THROUGHOUT DAY. BILATERAL NEPHROSTOMY DRAINING CLEAR YELLOW URINE. IVF RUNNING IN VASQUEZ MIDLINE D5 1/2NS@ 75 ML/HR. TOLERATING GTF 2 BOAZ @ 40 ML/HR .WILL CLARIFY WITH PAYROLL ACCOUNTANT OF CORRECT RATE. BILATERAL MITTENS APPLIED AND TAKEN OFF FOR PULLING AT TUBES. NO HYPER/HYPOGLYCEMIC EPISODES. LABS WITHIN NORMAL RANGE PENDING DISCHARGE. SAFETY AND ASPIRATION PRECAUTION FOLLWED BED IN LOW POSITION HOB >30. KEPT CLEAN AND DRY ALL NEEDS MET.
--- NOTE | 2018-09-30 19:16 | NUR ---
REPORT ENDORSED TO NOC
[2018-09-30 20:00] VITALS: BP_SYST 105; BP_SYST 115; BP_DIAS 60; BP_DIAS 65
--- NOTE | 2018-09-30 20:52 | NUR ---
KRYSTINA RN SON AT BEDSIDE; UPDATED ON PLAN OF CARE. SON CONCERNED THE G TUBE IS LOOSE. EXPLAINED TO SON THAT IS THE CLAMP AND IF IT IS CLOSED THE FEEDING WILL NOT PASS THROUGH.
--- NOTE | 2018-09-30 21:32 | NUR ---
TD RN DAUGHTER CALLED REQUESTING TO KNOW PTS VITAL SIGNS. UPDATED ON PT CONDITION. SHE WILL CALL BACK AT MIDNIGHT.
--- NOTE | 2018-09-30 22:12 | NUR ---
TD RN PT SON BECOMING HOSTILE AND AGGRESSIVE DEMANDING PT BE PUT ON BIPAP. SON DEMANDING MD BE CALLED. PT SATURATION NOTED 88% ON O2 3.5L; INCREASED O2 TO 5L AND NT SUCTIONED BY RT. ASKED SON TO ASSIST IN EXPLAINING THE PROCEDURE TO PT. SON LEFT ROOM STATING HE COULD NOT WAKE UP PT. PT PUNCHING DURING NT SUCTIONING.
[2018-10-01] VITALS: BP 120/70
[2018-10-01] MEDS: BLOOD SUGAR DIAGNOSTIC 1 EACH STRIP IN SCH ×5 (00:33→23:09)
[2018-10-01] MEDS: ALBUTEROL FS 2.5 MG/0.5 ML VIAL.NEB NEB SCH ×4 (01:44→20:13)
[2018-10-01] MEDS: IPRATROPIUM NEB FS 0.5 MG/2.5 ML AMPUL.NEB NEB SCH ×4 (01:44→20:12)
[2018-10-01] MEDS: TWOCAL HN 1,000 ML LIQUID GT SCH (02:00)
[2018-10-01 04:00] VITALS: BP 127/75
[2018-10-01] MEDS: IV D5/0.45 NACL 1,000 ML IV PRN ×2 (05:28→19:09)
[2018-10-01 06:41] LABS: CALCIUM, SERUM 8.6 mg/dL (8.5-10.1); CARBON DIOXIDE 28 mmol/L (21-32); CHLORIDE 105 mmol/L (98-107); CREATININE 0.6 mg/dL (0.6-1.3); GLUCOSE 102 mg/dL (74-106); POTASSIUM 4.4 mmol/L (3.5-5.1); SODIUM SERUM 139 mmol/L (136-145); UREA NITROGEN, BLOOD 14 mg/dL (7-18)
--- NOTE | 2018-10-01 07:30 | NUR ---
KRYSTINA RN NOTES RECEIVED PT IN BED, A/OX1 LETHARGIC EYES OPEN SPONTANEOUSLY; ON TELE ST ON NC 5L. NO LABORED BREATHING. GTF RUNNING VIA GT AT 40ML/HR. BILATERAL NEPHROSTOMY TUBES IN PLACE. KARLY MIDLINE INFUSING D5 1/2 NS AT 75 ML/HR. ON BILATERAL MITTENS RESTRAINTS; PULLING ON TUBES/LINES. BED IN LOCKED/LOWEST POSITION. CALL LIGHT IN REACH. WILL CONT TO MONITOR.
[2018-10-01 08:00] VITALS: BP 136/77
[2018-10-01] MEDS: DOCUSATE SODIUM LIQ 100 MG/10 ML UDC GT SCH ×2 (08:32→17:00)
[2018-10-01] MEDS: SULFAMETH/TRIMETH 800/160 MG 1 UDTAB TABLET PEG SCH ×2 (08:39→21:23)
[2018-10-01] MEDS: ZINC SULFATE 220 MG CAPSULE GT SCH (08:39)
[2018-10-01] MEDS: MULTIVITAMINS,THERAGRAN 1 UDTAB TABLET GT SCH (08:40)
[2018-10-01] MEDS: PANTOPRAZOLE 40 MG/PACK PACK GT SCH (08:40)
[2018-10-01] MEDS: FERROUS SULFATE (325 MG) 325 MG/TAB TABLET PO SCH ×2 (08:40→17:15)
[2018-10-01] MEDS: ENOXAPARIN SODIUM 40 MG/0.4 ML DISP.SYRIN SQ SCH (08:43)
[2018-10-01] MEDS: ASCORBIC ACID 500 MG TABLET GT SCH (08:44)
[2018-10-01 10:02] LABS: ABG BASE EXCESS 1.5 mmol/L; ABG OXYGEN SATURATION 95.8 % (92.0-98.5); ABG PCO2 37.5 mmHg (35.0-45.0); ABG PH 7.449 (7.350-7.450); ABG PO2 86.9 mmHg (75.0-100.0); AaDO2 191.3 mmHg; COHb 0.2 % (0.5-1.5); MetHb 0.5 % (0.0-1.5); O2Hb 95.1 % (94.0-97.0); SITE, ABG Right Radial; VENT MODE, BG 6L N/C
[2018-10-01] MEDS: MORPHINE SULFATE INJ 2 MG/ML DISP.SYRIN IM PRN ×2 (10:02→17:16)
[2018-10-01 12:00] VITALS: BP 133/69
[2018-10-01 16:00] VITALS: BP 124/65
--- NOTE | 2018-10-01 19:20 | NUR ---
KRYSTINA RN END OF SHIFT NOTES PT IN BED, WITH CAREGIVER AT BEDSIDE. VS STABLE. NO S/SX OF PAIN NOTED. POC DISCUSSED WITH FAMILY-GRAND DAUGHTER AND GOSIA. ENDORSED TO PM NURSE FOR TYRA.
--- NOTE | 2018-10-01 19:45 | NUR ---
TD RN NOTES RECEIVED PT ON BED. A/O X1. ON NSAL CANNULA 5LPM SATURATING 92%, NO RESPIRATORY DISTRESS NOTED. ON TELE MONITOR ST 120. NEPHRO TUBE DRAINING YELLOW URINE. IV ACCESS ON KARLY MIDLINE D51/2 NS @ 75CC/HR RUNNING WELL, PATENT AND INTACT. ON GTUBE FEEDING @40CC/HR NO RESIDUAL NOTED. HEAD OF BED ELEVATED. SIDE RAILS UP. CALL LIGHT WITHIN REACH. BED ALARM ON. WILL CONT TO MONITOR PT CLOSELY.
[2018-10-01 20:00] VITALS: BP 129/68
[2018-10-02] VITALS: BP 104/71
--- NOTE | 2018-10-02 00:03 | NUR ---
TD RN NOTES RT AT BEDSIDE FOR ABG.
[2018-10-02] MEDS: IPRATROPIUM NEB FS 0.5 MG/2.5 ML AMPUL.NEB NEB SCH ×4 (01:12→19:51)
[2018-10-02] MEDS: ALBUTEROL FS 2.5 MG/0.5 ML VIAL.NEB NEB SCH ×4 (01:12→19:51)
[2018-10-02 04:00] VITALS: BP 122/56
[2018-10-02] MEDS: BLOOD SUGAR DIAGNOSTIC 1 EACH STRIP IN SCH ×4 (05:18→22:00)
[2018-10-02] MEDS: IV D5/0.45 NACL 1,000 ML IV PRN ×2 (06:07→18:45)
[2018-10-02 06:15] LABS: BASOPHILS % (AUTO) 0.2 % (0.0-2.0); EOSINOPHILS % (AUTO) 0.6 % (0.0-6.0); HEMATOCRIT 30 % (39-51); HEMOGLOBIN 9.8 g/dL (13.5-17.5); LYMPHOCYTES % (AUTO) 11.4 % (20.0-44.0); MEAN CORPUSCULAR HGB CONC 32 g/dl (31.0-36.0); MEAN CORPUSCULAR VOLUME 91 fL (80-96); MONOCYTES # (AUTO) 0.6 /CMM (0.1-1.30); MONOCYTES % (AUTO) 6.5 % (2.0-12.0); NEUTROPHILS # (AUTO) 7.3 /CMM (1.8-8.9); NEUTROPHILS % (AUTO) 81.3 % (43.0-81.0); PLATELET COUNT (AUTO) 251 /CMM (150-450); RED BLOOD CELL COUNT(AUTO) 3.36 MIL/uL (4.5-6.0)
[2018-10-02 06:36] LABS: CALCIUM, SERUM 8.9 mg/dL (8.5-10.1); CARBON DIOXIDE 28 mmol/L (21-32); CHLORIDE 102 mmol/L (98-107); CREATININE 0.7 mg/dL (0.6-1.3); GLUCOSE 112 mg/dL (74-106); MAGNESIUM 2.1 mg/dL (1.8-2.4); PHOSPHORUS 3.4 mg/dL (2.5-4.9); POTASSIUM 4.9 mmol/L (3.5-5.1); SODIUM SERUM 136 mmol/L (136-145); UREA NITROGEN, BLOOD 13 mg/dL (7-18)
[2018-10-02 06:58] LABS: BAND % (MANUAL) 1 % (0.0-5.0); LYMPHOCYTES % (MANUAL) 10 % (16-48); MONOCYTES % (MANUAL) 5 % (0-11.0); NEUTROPHILS % (MANUAL) 84 (42-76)
--- NOTE | 2018-10-02 07:00 | NUR ---
RN NOTES RECEIVED PT ON BED. ALERT, NONVERBAL, DOES NOT FALLOW COMMAND ON 4L O2 N/A RESPIRATION EVEN AND UNLABORED,ON TELE MONITOR ST HR IN 110'S, RIGHT AND LEFT NEPHROSTOMY TUBE INTACT DRINING WITH YELLOW URINE, D51/2 NS @ 75CC/HR RUNNING, G-TUBE FEEDING ON HOLD AT THIS TIME FOR NEXT 4 HOURS PER ORDER,HEAD OF BED ELEVATED. SIDE RAILS UP x3, CALL LIGHT WITHIN REACH. BED ALARM ON. WILL CONT TO MONITOR PT CLOSELY.
--- NOTE | 2018-10-02 07:15 | NUR ---
TD RN NOTES NO ACUTE CHANGES NOTED DURING THE SHIFT. PROVIDED COMFORT AND SAFETY. NO RESPIRATORY DISTRESS NOTED. WILL ENDORSE TO THE AM NURSE FOR CONTINUTIY OF CARE.
[2018-10-02 08:00] VITALS: BP 112/64
[2018-10-02] MEDS: SULFAMETH/TRIMETH 800/160 MG 1 UDTAB TABLET PEG SCH ×2 (08:55→22:05)
[2018-10-02] MEDS: MULTIVITAMINS,THERAGRAN 1 UDTAB TABLET GT SCH (08:55)
[2018-10-02] MEDS: ASCORBIC ACID 500 MG TABLET GT SCH (08:55)
[2018-10-02] MEDS: DOCUSATE SODIUM LIQ 100 MG/10 ML UDC GT SCH ×2 (08:55→17:03)
[2018-10-02] MEDS: FERROUS SULFATE (325 MG) 325 MG/TAB TABLET PO SCH ×2 (08:55→17:04)
[2018-10-02] MEDS: ZINC SULFATE 220 MG CAPSULE GT SCH (08:55)
[2018-10-02] MEDS: ENOXAPARIN SODIUM 40 MG/0.4 ML DISP.SYRIN SQ SCH (08:57)
[2018-10-02] MEDS: PANTOPRAZOLE 40 MG/PACK PACK GT SCH (09:00)
--- NOTE | 2018-10-02 11:00 | NUR ---
RN NOTES SON REQUESTING TO TALK TO PRIMARY CARE , JAGJIT SAFETY TECHNICIAN NOTIFED,
[2018-10-02 12:00] VITALS: BP 112/64
--- NOTE | 2018-10-02 12:00 | NUR ---
RN NOTES VSS STABLE, SUPPORTIVE FAMILY AT THE BEDSIDE, CONTINUE TO MONITOR .
[2018-10-02] MEDS: TWOCAL HN 1,000 ML LIQUID GT SCH (13:51)
[2018-10-02 16:00] VITALS: BP 136/82
[2018-10-02] MEDS: MORPHINE SULFATE INJ 2 MG/ML DISP.SYRIN IM PRN (18:41)
--- NOTE | 2018-10-02 18:53 | NUR ---
RN NOTES NO SIGNIFCANT CHANGES NOTED ON THIS SHIFT , WILL ENDOSE TO FIELD CROP I FARMWORKER NURSE FOR CONTINUITY OF CARE.
[2018-10-02 20:00] VITALS: BP 114/82
--- NOTE | 2018-10-02 20:10 | NUR ---
RN OPENING NOTES RECEIVED REPORT FROM WILLIE ESCAMILLA. PATIENT A/A/O X1 TO NAME W/ CONFUSION BUT ABLE TO MAKE SOME NEEDS KNOWN & STATE PAIN. BREATHING EVEN & UNLABORED, TOLERATING O2 @ 4LPM VIA NC. DENIES ANY SOB OR DIFFICULTY BREATHING. RADIAL PULSES PRESENT. RIGHT UPPER ARM MIDLINE #18 INTACT & PATENT & IVF D5 1/2 NS INFUSING WELL @ 75 ML/HR. DENIES ANY PAIN OR DISCOMFORT @ THIS TIME. G-TUBE PATENT & FLUSHING WELL, GTF RUNNING @ 40 ML/HR. NO RESIDUAL NOTED @ THIS TIME. BILATERAL NEPHROSTOMY TUBES DRAINING SANGUINEOUS OUTPUT, NO SIGNS OF INFECTION NOTED AROUND SITE. SAFETY MEASURES IN PLACE W/ SIDE RAILS UP & BED ALARM ON. BILATERAL MITTENS APPLIED TO PREVENT FROM PULLING OF IV LINE & G-TUBE. WILL CONTINUE TO MONITOR.
[2018-10-02] MEDS: INSULIN REGULAR, HUMAN 100 UNIT/ML 3 ML VIAL SQ PRN (22:05)
[2018-10-03] MEDS: ALBUTEROL FS 2.5 MG/0.5 ML VIAL.NEB NEB SCH ×3 (01:54→13:25)
[2018-10-03] MEDS: IPRATROPIUM NEB FS 0.5 MG/2.5 ML AMPUL.NEB NEB SCH ×3 (01:54→13:25)
[2018-10-03 04:00] VITALS: BP 116/80
[2018-10-03] MEDS: INSULIN REGULAR, HUMAN 100 UNIT/ML 3 ML VIAL SQ PRN ×3 (06:11→18:10)
[2018-10-03] MEDS: BLOOD SUGAR DIAGNOSTIC 1 EACH STRIP IN SCH ×3 (06:11→18:10)
[2018-10-03] MEDS: PANTOPRAZOLE 40 MG/PACK PACK GT SCH (07:50)
[2018-10-03 08:00] VITALS: BP 140/79
--- NOTE | 2018-10-03 08:09 | NUR ---
MS RN OPENING NOTES RECEIVED PATIENT IN BED A/O X1, BREATHING EVEN & UNLABORED, TOLERATING O2 @ 4LPM VIA NC. NO SOB OR ACUTE DISTRESS NOTED. RADIAL PULSES PRESENT. RIGHT UPPER ARM MIDLINE #18 INTACT & PATENT & IVF D5 1/2 NS INFUSING WELL @ 75 ML/HR. G-TUBE PATENT & FLUSHING WELL, GTF RUNNING @ 40 ML/HR. NO RESIDUAL NOTED @ THIS TIME. BILATERAL NEPHROSTOMY TUBES DRAINING SANGUINEOUS OUTPUT, NO SIGNS OF INFECTION NOTED AROUND SITE. SAFETY MEASURES IN PLACE, BED IN LOW LOCKED POSITION. BILATERAL MITTENS APPLIED TO PREVENT FROM PULLING OF IV LINE & G-TUBE. CALL LIGHT WITHIN REACH. WILL CONTINUE TO MONITOR.
--- NOTE | 2018-10-03 09:00 | NUR ---
RN MS OPENING NOTES RECEIVED REPORT BOOKER PHILLIPS RN . PATIENT A/O X 1 VERY LETHARGIC. NO SIGNS OR SYMPTOMS OF RESPIRATORY DISTRESS ON 5 LTRS NASAL CANNULA SATURATING 94 %. NO ACUTE PAIN NOTED CAREGIVER AT BEDSIDE. BILATERAL NEPHROSTOMY BAG DRAINING CLEAR YELLOW URINE. KARLY MIDLINE GAUGE #18 RUNNING D5 1/2 NS @ 75 ML/HR. LABS WITHIN NORMAL LIMITS. GTF RUNNING 2 BOAZ @ 40 ML/HR TOLERATING WELL NO N/V/D NOTED. SAFETY AND ASPIRATION PRECAUTIONS IN PLACE BED IN LOW POSITION CALL LIGHT WITHIN REACH.
[2018-10-03] MEDS: ZINC SULFATE 220 MG CAPSULE GT SCH (09:27)
[2018-10-03] MEDS: ASCORBIC ACID 500 MG TABLET GT SCH (09:27)
[2018-10-03] MEDS: SULFAMETH/TRIMETH 800/160 MG 1 UDTAB TABLET PEG SCH (09:27)
[2018-10-03] MEDS: DOCUSATE SODIUM LIQ 100 MG/10 ML UDC GT SCH ×2 (09:27→17:03)
[2018-10-03] MEDS: FERROUS SULFATE (325 MG) 325 MG/TAB TABLET PO SCH ×2 (09:27→17:03)
[2018-10-03] MEDS: MULTIVITAMINS,THERAGRAN 1 UDTAB TABLET GT SCH (09:28)
[2018-10-03] MEDS: ENOXAPARIN SODIUM 40 MG/0.4 ML DISP.SYRIN SQ SCH (09:29)
[2018-10-03] MEDS: IV D5/0.45 NACL 1,000 ML IV PRN (09:38)
--- NOTE | 2018-10-03 13:00 | NUR ---
SOFTWARE CONFIGURATION ENGINEER ASKING FOR PAIN MEDS FOR PATIENT CONTACTED MATTEO SON AND HE APPROVED TO GIVE MORPHINE FOR PAIN.
[2018-10-03] MEDS: MORPHINE SULFATE INJ 2 MG/ML DISP.SYRIN IM PRN (13:01)
--- NOTE | 2018-10-03 15:50 | NUR ---
PATIENT FAMILY WANTING RESULTS FROM BIOPSY. CONTACTED DR STOVALL. EXPLAINED TO FAMILY THE TEST TAKES 5 DAYS TO GET A PROPER READING AND WITH HOLIDAY IT MAY TAKE LONGER.
[2018-10-03 16:00] VITALS: BP 111/58
--- NOTE | 2018-10-03 19:42 | NUR ---
CAR BODY INSPECTOR NOTES REPORT GIVEN TO SERJIO @ [facility] PT TO GO TO ROOM 1A. PATIENT A/O X1 STABLE NO SIGNS OR SYMPTOMS OF RESPIRATORY DISTRESS ON 3 LTRS NASAL CANNULA SATURATING 95%. NO ACUTE PAIN NOTED. LAST MORPHINE GIVEN @ 1300. BILATERAL MITTENS PLACE FOR PULLING AT LINES.BILATERAL NEPHROSTOMY DRAINING CLEAR YELLOW URINE. VASQUEZ MIDLINE REMOVED # 18 GAUGE PRESSURE APPLIED NO BLEEDING NOTED. FAMILY REFUSED PHOTOS WANTED TRANSFER TO BE DONE QUICK WITHOUT AGITATING PATIENT. VITALS STABLE BP 107/68 HR 114 O2 95% RR 18.
== END 2018-10-03 19:10 | DRG 853 ==
LOC: ER 11:45 → TELE-TD 14:07 → ICU 17:58 → TELE-TD 09-27 12:42 → MEDSG1 10-02 11:31
PROVIDERS: ADMIT Registered Nurse; ATTEND Nurse Practitioner Acute Care
PROC: 0Q923ZX Drainage of Right Pelvic Bone, Percutaneous Approach, Diagnostic (ICD-10-PCS; principal; 2018-09-28)
PROC: 05HC33Z Insertion of Infusion Device into Left Basilic Vein, Percutaneous Approach (ICD-10-PCS; 2018-09-29)
DX: A41.9 Sepsis, unspecified organism (principal); J69.0 Pneumonitis due to inhalation of food and vomit; J96.20 Acute and chronic respiratory failure, unspecified whether with hypoxia or hypercapnia; G92 Toxic encephalopathy; J96.22 Acute and chronic respiratory failure with hypercapnia; J96.21 Acute and chronic respiratory failure with hypoxia; N17.0 Acute kidney failure with tubular necrosis; N39.0 Urinary tract infection, site not specified; J44.1 Chronic obstructive pulmonary disease with (acute) exacerbation; E87.0 Hyperosmolality and hypernatremia; J44.0 Chronic obstructive pulmonary disease with (acute) lower respiratory infection; J98.11 Atelectasis; I48.91 Unspecified atrial fibrillation; N40.0 Benign prostatic hyperplasia without lower urinary tract symptoms; G30.9 Alzheimer's disease, unspecified; F02.80 Dementia in other diseases classified elsewhere, unspecified severity, without behavioral disturbance, psychotic disturbance, mood disturbance, and anxiety; E86.0 Dehydration; I12.9 Hypertensive chronic kidney disease with stage 1 through stage 4 chronic kidney disease, or unspecified chronic kidney disease; D47.2 Monoclonal gammopathy; Z95.0 Presence of cardiac pacemaker; Z93.6 Other artificial openings of urinary tract status; Z92.3 Personal history of irradiation; Z87.891 Personal history of nicotine dependence; Z87.440 Personal history of urinary (tract) infections; Z85.51 Personal history of malignant neoplasm of bladder; Z85.118 Personal history of other malignant neoplasm of bronchus and lung; R13.10 Dysphagia, unspecified; N18.9 Chronic kidney disease, unspecified; N28.1 Cyst of kidney, acquired; I13.10 Hypertensive heart and chronic kidney disease without heart failure, with stage 1 through stage 4 chronic kidney disease, or unspecified chronic kidney disease; D64.9 Anemia, unspecified; K57.30 Diverticulosis of large intestine without perforation or abscess without bleeding; Z91.09 Other allergy status, other than to drugs and biological substances; Z93.1 Gastrostomy status; T68.XXXA Hypothermia, initial encounter; F09 Unspecified mental disorder due to known physiological condition; I70.0 Atherosclerosis of aorta; Z88.1 Allergy status to other antibiotic agents; R73.9 Hyperglycemia, unspecified; J45.909 Unspecified asthma, uncomplicated; B96.89 Other specified bacterial agents as the cause of diseases classified elsewhere; N28.89 Other specified disorders of kidney and ureter
CPT/HCPCS: 31720; 36415; 36569; 36600; 71045-TC; 71250-TC; 80048-TC; 80061-TC; 80076-TC; 81000-TC; 82232; 82272-TC; 82728-TC; 82784; 82803-TC; 82962-TC; 83540-TC; 83605-TC; 83735-TC; 83880; 84100-TC; 84155; 84165; 84439-TC; 84443-TC; 84481; 84484-TC; 85025-TC; 85610-TC; 85730-TC; 86334; 87040-TC; 87081-TC; 87086-TC; 93970-TC; 94760-TC; 94762-TC; 94799-TC; A4216; G0378; J1650; J1815; J2020; J2185; J2270; J2920; J2930; J3475; J3490; J7030; J7050; J7060; Q9967

== ENCOUNTER 2018-10-08 23:39 | Inpatient (IN) | payer OTHER, MEDICARE ==
[~2018-10-08] VITALS: Ht 170.2 cm; Wt 69.7 kg
[~2018-10-08 23:39] MED LIST: ACET-73 GT; ACET325T53 GT; AMIN30LI27 GT; ASCO500T9 GT; BISA10SU61 RC; CRAN3875 GT; DOCU50LI GT; MAGN400O6 GT; MULT-213 GT; NA P133E RC; NUT.237L25 GT; ZINC220C6 GT
[2018-10-09] VITALS (7 sets, daily range): BP systolic 100–126; BP diastolic 49–78
[2018-10-09] MEDS ORDERED: IV NS 0.9% 1,000 ML BAG IV ONE
[2018-10-09 00:03] LABS: APPEARANCE,URINE Slightly Cloudy (CLEAR); BILIRUBIN,URINE Negative (NEGATIVE); BLOOD, URINE Large Ery/uL (NEGATIVE); COLOR,URINE Yellow (YELLOW); KETONES,URINE Trace (NEGATIVE); LEUKOCYTE ESTERASE ,URINE Small (NEGATIVE); NITRITE, URINE Negative (NEGATIVE); PH,URINE 5.5 (5.0-8.0); PROTEIN,URINE 100 mg/dl (NEGATIVE); UGLUCOSE Negative (NEGATIVE); UROBILINOGEN,URINE 0.2 EU/dL (0.2)
--- NOTE | 2018-10-09 00:20 | NUR ---
CRICKET W/ A REPORT OF HIGH HR. PT WAS GOWNED UP AND PLACED ON A MONITOR ,HR:117. RECTAL TEMP: 98.7 PT W/ A GT CLAMPED IN PLACE W/ BILATERAL NEPHROSTOMY TUBE. WILL CONT TO MONITOR,
--- NOTE | 2018-10-09 00:30 | NUR ---
END INFUSION TIME OF NS BOLUS: 129
[2018-10-09 00:37] LABS: BASOPHILS # (AUTO) 0.1 /CMM (0.0-0.2); BASOPHILS % (AUTO) 0.9 % (0.0-2.0); HEMATOCRIT 39 % (39-51); HEMOGLOBIN 12.1 g/dL (13.5-17.5); LYMPHOCYTES # (AUTO) 1.7 /CMM (0.8-4.8); LYMPHOCYTES % (AUTO) 22.8 % (20.0-44.0); MEAN CORPUSCULAR HGB CONC 31 g/dl (31.0-36.0); MEAN CORPUSCULAR VOLUME 94 fL (80-96); MONOCYTES # (AUTO) 0.7 /CMM (0.1-1.30); MONOCYTES % (AUTO) 9.1 % (2.0-12.0); NEUTROPHILS # (AUTO) 4.9 /CMM (1.8-8.9); NEUTROPHILS % (AUTO) 65.2 % (43.0-81.0); PLATELET COUNT (AUTO) 280 /CMM (150-450); RED BLOOD CELL COUNT(AUTO) 4.17 MIL/uL (4.5-6.0); WHITE BLOOD COUNT (AUTO) 7.5 K/uL (4.3-11.0)
[2018-10-09 00:42] LABS: CARBON DIOXIDE 27 mmol/L (21-32); CHLORIDE 104 mmol/L (98-107); GLUCOSE 101 mg/dL (74-106); SODIUM SERUM 141 mmol/L (136-145); UREA NITROGEN, BLOOD 38 mg/dL (7-18)
[2018-10-09 00:48] LABS: ALANINE AMINOTRANSFERASE 26 U/L (12-78); ALBUMIN 2.9 g/dL (3.4-5.0); ALKALINE PHOSPHATASE 89 U/L (46-116); ASPARTATE AMINOTRANSFERASE 36 U/L (15-37); BILIRUBIN,DIRECT 0.1 mg/dL (0.0-0.2); BILIRUBIN,TOTAL 0.5 mg/dL (0.2-1.0); LIPASE 105 U/L (73-393); TOTAL PROTEIN, SERUM 7.5 g/dL (6.4-8.2)
[2018-10-09 00:49] LABS: POTASSIUM 5.6 mmol/L (3.5-5.1)
[2018-10-09 00:52] LABS: BACTERIA,URINE Moderate /HPF (None Seen); MUCUS,URINE Few /LPF (None Seen); RBC,URINE 81-100 /HPF (0-2); SQUAMOUS EPITHELIAL CELL,UR Rare /HPF (None Seen); WBC,URINE TOO NUMEROUS TO COUN /HPF (0-3); YEAST,URINE Few /HPF (None Seen)
--- NOTE | 2018-10-09 01:29 | NUR ---
Kendrick zepeda in [facility] - 10/09/18 at 0130 by STEPH ROOM ASSIGNMENT
--- NOTE | 2018-10-09 01:30 | NUR ---
ROOM ASSIGNMENT 200
[2018-10-09] MEDS ORDERED: CEFEPIME 1 GM in IV NS 0.9% 50 ML IV SCH (02:00)
[2018-10-09] MEDS ORDERED: ATOR80TA PO (02:25)
[2018-10-09] MEDS ORDERED: ALLO100T PO (02:25)
[2018-10-09] MEDS ORDERED: OMEP40CA37 PO (02:25)
[2018-10-09] MEDS ORDERED: ASPI-1152 PO (02:25)
[2018-10-09] MEDS ORDERED: METO50TA16 PO (02:25)
[2018-10-09] MEDS ORDERED: FINA5TAB11 PO (02:25)
[2018-10-09] MEDS ORDERED: BUDE0.253 IH (02:25)
[2018-10-09] MEDS ORDERED: TIOT18CA3 IH (02:25)
[2018-10-09] MEDS ORDERED: CEFEPIME 1 GM in IV NS 0.9% 50 ML IV ONE (02:37)
[2018-10-09] MEDS ORDERED: CEFEPIME 1 GM VIAL ONE (02:41)
--- NOTE | 2018-10-09 02:50 | NUR ---
IV MAXIPIME GIVEN ORDETRED. PER DR GANGA MONIQUE TO GIVE TH EMEDICATION DESPITE THE ALLERGIC REACTION. END INFUSION TIME: 0350
--- NOTE | 2018-10-09 03:06 | NUR ---
REPORT GIVEN TO CORI ON THIRD FLOOR.
--- NOTE | 2018-10-09 03:20 | NUR ---
RN OPEN NOTES RECEIVED PATIENT FROM ER VIA [facility] WITH FAMILY AT BEDSIDE. A/OX1. NO SIGNS OF DISTRESS OR DISCOMFORT. BREATHING EVEN AND UNLABORED. ON 3LPM O2 VIA NC. ATTACHED TO TELE MONITOR WITH ST 110 NOTED. ORIENTED PATIENT AND FAMILY TO UNIT AND ROOM. IV ACCESS IN L INDEX AND R INDEX FINGER WITH NS INFUSING TO GRAVITY, PATENT AND INTACT, NO SIGNS OF REDNESS OR INFILTRATION. HAS GTUBE PATENT AND INTACT WITH NO RESIDUAL NOTED. HAS B NEPHROSTOMY TUBES INTACT DRAINING CLEAR YELLOW FLUID. BED IN LOW LOCKED POSITION WITH SIDE RAILS X2. CALL LIGHT WITHIN REACH. WILL CONTINUE TO MONITOR
--- NOTE | 2018-10-09 03:32 | NUR ---
PT WAS TRANSFERRED TO [facility]- IN STABLE CONDITION UNDER ACLS PROTOCOL
[2018-10-09] MEDS ORDERED: MEROPENEM 500 MG in IV NS 0.9% 50 ML IV ONE (04:30)
[2018-10-09] MEDS ORDERED: MEROPENEM 500 MG in IV NS 0.9% 50 ML IV SCH (05:00)
[2018-10-09] MEDS ORDERED: MEROPENEM 500 MG VIAL IV ONE (05:15)
[2018-10-09] MEDS ORDERED: ACETAMINOPHEN 325 MG TABLET PO PRN (06:30)
[2018-10-09] MEDS ORDERED: MAGNESIUM HYDROXIDE 30 ML UDC GT PRN (06:30)
[2018-10-09] MEDS ORDERED: BISACODYL SUPP (10 MG) 10 MG/SUPP.RECT SUPP.RECT RC PRN (06:30)
[2018-10-09] MEDS ORDERED: NA PHOS,M-B/NA PHOS,DI-BA 1 EA ENEMA RC PRN (06:30)
[2018-10-09] MEDS ORDERED: TWOCAL HN 1,000 ML LIQUID GT SCH (06:30)
[2018-10-09 07:13] LABS: BASOPHILS % (AUTO) 0.6 % (0.0-2.0); EOSINOPHILS % (AUTO) 1.9 % (0.0-6.0); HEMATOCRIT 37 % (39-51); HEMOGLOBIN 11.6 g/dL (13.5-17.5); LYMPHOCYTES # (AUTO) 0.9 /CMM (0.8-4.8); LYMPHOCYTES % (AUTO) 16.9 % (20.0-44.0); MEAN CORPUSCULAR HGB CONC 32 g/dl (31.0-36.0); MEAN CORPUSCULAR VOLUME 92 fL (80-96); MONOCYTES # (AUTO) 0.3 /CMM (0.1-1.30); MONOCYTES % (AUTO) 6.3 % (2.0-12.0); NEUTROPHILS # (AUTO) 3.9 /CMM (1.8-8.9); NEUTROPHILS % (AUTO) 74.3 % (43.0-81.0); PLATELET COUNT (AUTO) 271 /CMM (150-450); RED BLOOD CELL COUNT(AUTO) 4.02 MIL/uL (4.5-6.0); WHITE BLOOD COUNT (AUTO) 5.2 K/uL (4.3-11.0)
[2018-10-09 07:26] LABS: ALANINE AMINOTRANSFERASE 27 U/L (12-78); ALBUMIN 2.8 g/dL (3.4-5.0); ALKALINE PHOSPHATASE 81 U/L (46-116); ASPARTATE AMINOTRANSFERASE 22 U/L (15-37); B-TYPE NATRIURETIC PEPTIDE 198 PG/ML (0-125); BILIRUBIN,TOTAL 0.5 mg/dL (0.2-1.0); CALCIUM, SERUM 9.6 mg/dL (8.5-10.1); CARBON DIOXIDE 28 mmol/L (21-32); CHLORIDE 106 mmol/L (98-107); CREATININE 1.1 mg/dL (0.6-1.3); GLUCOSE 91 mg/dL (74-106); MAGNESIUM 2.2 mg/dL (1.8-2.4); POTASSIUM 5.1 mmol/L (3.5-5.1); SODIUM SERUM 141 mmol/L (136-145); UREA NITROGEN, BLOOD 33 mg/dL (7-18)
[2018-10-09] MEDS ORDERED: IV NS 0.9% 1,000 ML BAG IV PRN (07:30)
[2018-10-09] MEDS ORDERED: PHARMACY TO CHANGE PO MEDS TO GT/NG XX PRN (07:30)
--- NOTE | 2018-10-09 07:30 | NUR ---
Tele/RN - Assessment Patient is awake, no s/s pain, afebrile, no evidence of resp. 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 Saline lock on the left index finger and right index finger are both patent, intact, with no signs of infiltration. Bilateral nephrostomy tubes in place. Labs reviewed, noted with lactic acid 2.5, relayed to Dr. Mateus Wang with no new order at this time. Fall and aspiration precautions maintained. Will continue with current medical management.
--- NOTE | 2018-10-09 07:54 | NUR ---
RN BERNY NOTES PATIENT RESTING IN BED, EASILY AROUSABLE. A/OX1. NO SIGNS OF DISTRESS OR DISCOMFORT. BREATHING EVEN AND UNLABORED. ON 3LPM O2 VIA NC. ON TELE MONITORING WITH ST 111 NOTED. IV ACCESS IN L INDEX AND R INDEX FINGER WITH NS INFUSING TO GRAVITY, PATENT AND INTACT, NO SIGNS OF REDNESS OR INFILTRATION. HAS GTUBE PATENT AND INTACT.. HAS B NEPHROSTOMY TUBES INTACT DRAINING CLEAR YELLOW FLUID. ALL NEEDS MET. NO SIGNIFICANT CHANGES THROUGH THE NIGHT. PATIENT KEPT CLEAN DRY AND COMFORTABLE. REPOSITIONED Q2H. BED IN LOW LOCKED POSITION WITH SIDE RAILS X2. CALL LIGHT WITHIN REACH. ENDORSED TO AM SHIFT FOR TYRA.
[2018-10-09] MEDS: DOCUSATE SODIUM LIQ 100 MG/10 ML UDC GT SCH (08:39)
[2018-10-09] MEDS: ASCORBIC ACID 500 MG TABLET GT SCH (08:40)
[2018-10-09] MEDS: MULTIVIT W/MINERALS 1 TAB TABLET GT SCH (08:40)
[2018-10-09] MEDS: FAMOTIDINE (20 MG) 20 MG TABLET GT SCH (08:40)
[2018-10-09] MEDS: FINASTERIDE (5 MG) 5 MG TABLET GT SCH (08:40)
[2018-10-09] MEDS: ALLOPURINOL 100 MG TABLET GT SCH (08:41)
[2018-10-09] MEDS: PROSOURCE / PROSTAT (PYXIS) 30 ML UDC GT SCH ×2 (08:41→16:44)
[2018-10-09] MEDS: ASPIRIN 81 MG TAB.CHEW GT SCH (08:44)
[2018-10-09] MEDS: IV NS 0.9% 1,000 ML IV PRN (08:45)
[2018-10-09] MEDS ORDERED: MULTIVIT W/MINERALS 1 TAB TABLET PO SCH (09:00)
[2018-10-09] MEDS ORDERED: ASPIRIN EC 81 MG TABLET.DR PO SCH (09:00)
[2018-10-09] MEDS ORDERED: FAMOTIDINE (20 MG) 20 MG TABLET GT SCH (09:00)
[2018-10-09] MEDS ORDERED: ALLOPURINOL 100 MG TABLET PO SCH (09:00)
[2018-10-09] MEDS ORDERED: ACETAMINOPHEN 650 MG/20.3 ML UDC GT PRN (09:00)
[2018-10-09] MEDS ORDERED: PROSOURCE / PROSTAT (PYXIS) 30 ML UDC PO SCH (09:00)
--- NOTE | 2018-10-09 10:05 | NUR ---
Tele/RN - Critical result Lab called for lactic acid 2.8, relayed to Dr. Mateus Wang. Patient is afebrile, currently on NS at 70 ml/hr and IV Meropenem. Informed Md if he wants to increase IVF rate, per Dr. Ignacio continue same rate for now.
--- NOTE | 2018-10-09 10:30 | NUR ---
MS/RN - Notes Telemetry monitoring discontinued by Dr. Elizondo.
[2018-10-09] MEDS: MEROPENEM 500 MG in IV NS 0.9% 100 ML IV SCH ×2 (12:25→20:31)
[2018-10-09] MEDS: TWOCAL HN 1,000 ML LIQUID GT PRN (12:45)
[2018-10-09] MEDS: BUDESONIDE RESPULE INH 0.25 MG/2 ML AMPUL.NEB IH SCH ×2 (12:49→15:12)
--- NOTE | 2018-10-09 14:00 | NUR ---
MS/RN - Notes Patient placed on venturi mask at 26% FiO2, tolerated well.
[2018-10-09] MEDS: IPRATROPIUM NEB FS 0.5 MG/2.5 ML AMPUL.NEB NEB SCH ×2 (14:16→19:28)
[2018-10-09] MEDS: ALBUTEROL FS 2.5 MG/0.5 ML VIAL.NEB NEB SCH ×2 (14:16→19:28)
[2018-10-09] MEDS ORDERED: Z GUARD REMEDY 2 OZ OINT TP SCH (15:00)
--- NOTE | 2018-10-09 16:00 | NUR ---
MS/RN - Notes Specialty mattress in place for skin management.
[2018-10-09] MEDS ORDERED: DEXTROSE 50%-WATER 50 ML DISP.SYRIN IV PRN (16:30)
[2018-10-09] MEDS: BLOOD SUGAR DIAGNOSTIC 1 EACH STRIP IN SCH (17:04)
--- NOTE | 2018-10-09 18:18 | NUR ---
MS/RN - End of shift summary Patient remain afebrile, no apparent distress seen, tolerated tube feeding well. Family at bedside updated on pt's condition. Will continue with current medical management.
--- NOTE | 2018-10-09 21:49 | NUR ---
MS RN NOTES RECEIVED PATIENT AWAKE IN BED WITH NO DISTRESS NOTED. CALL LIGHT WITHIN REACH. NO FACIAL GRIMACING OR GROANING TO INDICATE PAIN OR DISCOMFORT. FAMILY AT BEDSIDE. BILATERAL NEPHROSTOMY TUBE INTACT AND PATENT AND DRAINING CLEAR YELLOW URINE. NO LEAKING NOTED. LEFT AND RIGHT FINGER PERIPHERAL LINES REMOVED D/T UNABLE TO FLUSH. FAMILY REQUEST MIDLINE PLACEMENT. WITH ORDER AND PLACED AND TOLERATED WELL. NO ACTIVE BLEEDING NOTED. GTF ON AND RUNNING AT 45ML/HR. NO ABDOMINAL DISTENTION NOTED. BED IN LOW LOCK SETTING. BED ALARM ON AND FUNCTIONING PROPERLY. ALL BELONGINGS KEPT NEAR BEDSIDE. WILL CONTINUE TO MONITOR.
[2018-10-09] MEDS: ATORVASTATIN 10 MG TABLET PO SCH (22:13)
[2018-10-09] MEDS: Z GUARD REMEDY 2 OZ OINT TP SCH (22:14)
[2018-10-10] MEDS: BLOOD SUGAR DIAGNOSTIC 1 EACH STRIP IN SCH ×4 (01:02→17:09)
[2018-10-10] MEDS: ALBUTEROL FS 2.5 MG/0.5 ML VIAL.NEB NEB SCH ×4 (01:06→21:39)
[2018-10-10] MEDS: IPRATROPIUM NEB FS 0.5 MG/2.5 ML AMPUL.NEB NEB SCH ×4 (01:06→21:38)
[2018-10-10] MEDS: MEROPENEM 500 MG in IV NS 0.9% 100 ML IV SCH ×3 (04:18→20:33)
--- NOTE | 2018-10-10 07:43 | NUR ---
MS RN NOTES PATIENT AWAKE IN BED WITH NO DISTRESS NOTED. CALL LIGHT WITHIN REACH. 02 @3LMP VIA VENTI MASK INTACT AND PATENT WITH 02 SAT 96-97%. NO FACIAL GRIMACING OR GROANING TO INDICATE PAIN OR DISCOMFORT. KARLY MIDLINE #18 GAUGE INTACT AND PATENT. BILATERAL HAND MITTENS IN PLACE WITH NO NEW SKIN BREAKDOWN OR DISCOLORATION AND NOTED WITH GOOD SKIN CIRCULATION. MITTENS REMOVED Q2HRS AND PRN. BILATERAL NEPHROSTOMY TUBE INTACT AND PATENT AND DRAINING CLEAR YELLOW URINE. NO LEAKING NOTED. GTF ON AND RUNNING AT 45ML/HR. NO ABDOMINAL DISTENTION NOTED. BED IN LOW LOCK SETTING. BED ALARM ON AND FUNCTIONING PROPERLY. ALL BELONGINGS KEPT NEAR BEDSIDE. WILL ENDORSE TO ONCOMING SHIFT.
--- NOTE | 2018-10-10 07:45 | NUR ---
MS RN OPENING NOTES RECEIVED PATIENT IN BED RESTING COMFORTABLY WITH NO DISTRESS NOTED. ON OXYGEN @3LMP VIA VENTI MASK INTACT AND PATENT WITH 02 SAT 94%. NO FACIAL GRIMACING OR GROANING TO INDICATE PAIN OR DISCOMFORT. WITH IVF ON KARLY MIDLINE #18 OF NS @70ML/HR. INTACT AND PATENT. BILATERAL HAND MITTENS IN PLACE. NOTED WITH BILATERAL NEPHROSTOMY TUBE INTACT AND PATENT. NO LEAKING NOTED. GTF ON AND RUNNING AT 45ML/HR. NO ABDOMINAL DISTENTION NOTED. BED IN LOW LOCK SETTING. BED ALARM ON. CALL LIGHT WITHIN REACH. WILL CONTINUE TO MONITOR.
[2018-10-10 08:00] VITALS: BP 120/58
[2018-10-10] MEDS: BUDESONIDE RESPULE INH 0.25 MG/2 ML AMPUL.NEB IH SCH ×2 (08:41→15:00)
[2018-10-10] MEDS: MULTIVIT W/MINERALS 1 TAB TABLET GT SCH (08:48)
[2018-10-10] MEDS: ASPIRIN 81 MG TAB.CHEW GT SCH (08:48)
[2018-10-10] MEDS: ALLOPURINOL 100 MG TABLET GT SCH (08:48)
[2018-10-10] MEDS: FAMOTIDINE (20 MG) 20 MG TABLET GT SCH (08:49)
[2018-10-10] MEDS: ASCORBIC ACID 500 MG TABLET GT SCH (08:49)
[2018-10-10] MEDS: DOCUSATE SODIUM LIQ 100 MG/10 ML UDC GT SCH (08:49)
[2018-10-10] MEDS: FINASTERIDE (5 MG) 5 MG TABLET GT SCH (08:49)
[2018-10-10] MEDS: Z GUARD REMEDY 2 OZ OINT TP SCH ×2 (08:52→20:38)
[2018-10-10] MEDS: PROSOURCE / PROSTAT (PYXIS) 30 ML UDC GT SCH ×2 (08:57→17:05)
--- NOTE | 2018-10-10 09:44 | NUR ---
WOUND CARE CONSULT: PT PRESENTS WITH BILATERAL NEPHROSTOMY TUBES, PRESENT ON ADMISSION. DEFER TO MD FOR NEPHROSTOMY TUBES. PT ON FIRST STEP LOW AIRLOSS MATTRESS. ALL SKIN PROTECTION RECOMMENDATIONS DISCUSSED WITH NURSING STAFF. PT'S FAMILY MEMBER AT BEDSIDE REQUESTS DPM FOR NAIL CARE. LONG NAILS NOTED, PRESENT ON ADMISSION. DR MARION TO SEE PT TOMORROW FOR NAILS. WILL SEE PRN. MD IN AGREEMENT WITH PLAN OF CARE.
[2018-10-10] MEDS: TWOCAL HN 1,000 ML LIQUID GT PRN (12:39)
[2018-10-10] MEDS: IV NS 0.9% 1,000 ML IV PRN (13:09)
[2018-10-10 16:00] VITALS: BP 122/51
--- NOTE | 2018-10-10 19:20 | NUR ---
MS RN OPENING NOTES Received patient, A/O x1, awake on semi-Leon's position on bed. On venturi mask @ 3LPM, saturating well. With RT at bedside administering breathing txs. Patient noted agitated, moving trying to get off the bed. With bilateral mittens noted. Repositioned patient comfortably, ensured fall precautions. Patient noted asleep. With air mattress in place. With GTF tolerated well, no N/V/abdominal distention noted. With peripheral midline intact, infusing well with NS @ 70ml/hr as ordered. Will continue to monitor accordingly.
--- NOTE | 2018-10-10 19:32 | NUR ---
MS RN CLOSING NOTES PATIENT IN BED RESTING COMFORTABLY WITH NO DISTRESS NOTED. ON OXYGEN @3LMP VIA VENTI MASK INTACT AND PATENT WITH 02 SAT 96%. NO FACIAL GRIMACING OR GROANING TO INDICATE PAIN OR DISCOMFORT AT THIS TIME. WITH IVF ON KARLY MIDLINE #18 OF NS @70ML/HR. INTACT AND PATENT. BILATERAL HAND MITTENS IN PLACE. NOTED WITH BILATERAL NEPHROSTOMY TUBE INTACT AND PATENT. NO LEAKING NOTED. GTF ON AND RUNNING AT 45ML/HR. NO ABDOMINAL DISTENTION NOTED. ALL NURSING CARE PROVIDED. BED IN LOW LOCK SETTING. BED ALARM ON. CALL LIGHT WITHIN REACH. ENDORSED TO SEED CLEANER NURSE FOR TYRA.
[2018-10-10 20:00] VITALS: BP 132/78
[2018-10-10] MEDS: ATORVASTATIN 10 MG TABLET PO SCH (21:42)
[2018-10-11] MEDS: BLOOD SUGAR DIAGNOSTIC 1 EACH STRIP IN SCH ×4 (00:02→17:19)
[2018-10-11] MEDS: ALBUTEROL FS 2.5 MG/0.5 ML VIAL.NEB NEB SCH ×4 (01:41→21:01)
[2018-10-11] MEDS: IPRATROPIUM NEB FS 0.5 MG/2.5 ML AMPUL.NEB NEB SCH ×4 (01:41→21:01)
[2018-10-11] MEDS: MEROPENEM 500 MG in IV NS 0.9% 100 ML IV SCH ×3 (04:07→21:04)
[2018-10-11 06:56] LABS: BASOPHILS % (AUTO) 0.8 % (0.0-2.0); EOSINOPHILS % (AUTO) 2.9 % (0.0-6.0); HEMATOCRIT 35 % (39-51); HEMOGLOBIN 10.9 g/dL (13.5-17.5); LYMPHOCYTES # (AUTO) 0.9 /CMM (0.8-4.8); LYMPHOCYTES % (AUTO) 16.8 % (20.0-44.0); MEAN CORPUSCULAR HGB CONC 32 g/dl (31.0-36.0); MEAN CORPUSCULAR VOLUME 92 fL (80-96); MONOCYTES # (AUTO) 0.4 /CMM (0.1-1.30); NEUTROPHILS % (AUTO) 71.5 % (43.0-81.0); PLATELET COUNT (AUTO) 268 /CMM (150-450); RED BLOOD CELL COUNT(AUTO) 3.76 MIL/uL (4.5-6.0); WHITE BLOOD COUNT (AUTO) 5.6 K/uL (4.3-11.0)
[2018-10-11 07:12] LABS: CALCIUM, SERUM 9.3 mg/dL (8.5-10.1); CARBON DIOXIDE 26 mmol/L (21-32); CHLORIDE 109 mmol/L (98-107); CREATININE 0.8 mg/dL (0.6-1.3); GLUCOSE 107 mg/dL (74-106); MAGNESIUM 2.1 mg/dL (1.8-2.4); PHOSPHORUS 3.7 mg/dL (2.5-4.9); POTASSIUM 4.6 mmol/L (3.5-5.1); SODIUM SERUM 147 mmol/L (136-145); UREA NITROGEN, BLOOD 22 mg/dL (7-18)
--- NOTE | 2018-10-11 07:46 | NUR ---
MS RN CLOSING NOTES Patient asleep, no new unusualities noted. All due meds given as ordered. All nursing needs attended. On fall precaution. Call light within easy reach. Endorsed to the next shift.
[2018-10-11 08:00] VITALS: BP 104/64
--- NOTE | 2018-10-11 08:00 | NUR ---
MS RN OPENING NOTES Received Patient resting and asleep in bed. A/O x 1, Farsi speaking. VS stable with no acute distress. Breathing even and unlabored on 2LPM via NC with no respiratory distress. No signs and symptoms of pain noted. Bilateral nephrostomy intact and operational. G-tube in place and operational with TwolCal running at 45ml/hr. 18g KARLY Midline clean, dry, intact and flushing well with NS running at 70ml/hr. Bilateral mittens in place and operational. Skin warm and dry with cap refill<3. Safety precautions in place. Bed locked and set to lowest position with side rails x 2 up. All needs rendered at this time. Will continue to monitor.
[2018-10-11] MEDS: BUDESONIDE RESPULE INH 0.25 MG/2 ML AMPUL.NEB IH SCH ×2 (08:37→16:15)
[2018-10-11] MEDS: DOCUSATE SODIUM LIQ 100 MG/10 ML UDC GT SCH (09:48)
[2018-10-11] MEDS: FAMOTIDINE (20 MG) 20 MG TABLET GT SCH (09:48)
[2018-10-11] MEDS: FINASTERIDE (5 MG) 5 MG TABLET GT SCH (09:48)
[2018-10-11] MEDS: ASPIRIN 81 MG TAB.CHEW GT SCH (09:48)
[2018-10-11] MEDS: Z GUARD REMEDY 2 OZ OINT TP SCH ×2 (09:49→21:03)
[2018-10-11] MEDS: ASCORBIC ACID 500 MG TABLET GT SCH (09:49)
[2018-10-11] MEDS: ALLOPURINOL 100 MG TABLET GT SCH (09:49)
[2018-10-11] MEDS: MULTIVIT W/MINERALS 1 TAB TABLET GT SCH (09:49)
[2018-10-11] MEDS: PROSOURCE / PROSTAT (PYXIS) 30 ML UDC GT SCH ×2 (09:54→17:19)
[2018-10-11] MEDS: IV 1/2NS 1000 ML 1,000 ML IV PRN (13:04)
[2018-10-11 16:00] VITALS: BP 123/70
[2018-10-11 20:00] VITALS: BP 119/78
--- NOTE | 2018-10-11 20:06 | NUR ---
MS RN CLOSING NOTES Patient resting in bed. A/O x 1, Farsi speaking. VS stable with no acute distress. Breathing even and unlabored on 2LPM via NC with no respiratory distress. No signs and symptoms of pain noted. Bilateral nephrostomy intact and operational with total of 700ml output. G-tube in place and operational with TwolCal running at 45ml/hr. 18g KARLY Midline clean, dry, intact and flushing well with 1/2NS running at 75ml/hr. Bilateral mittens in place and operational. Skin warm and dry with cap refill<3. Safety precautions in place. Bed locked and set to lowest position with side rails x 2 up. All needs rendered at this time. Will endorse plan of care to oncoming shift.
[2018-10-11] MEDS: TWOCAL HN 1,000 ML LIQUID GT PRN (20:54)
[2018-10-11] MEDS: ATORVASTATIN 10 MG TABLET PO SCH (21:14)
[2018-10-12] MEDS: BLOOD SUGAR DIAGNOSTIC 1 EACH STRIP IN SCH ×5 (00:18→23:15)
[2018-10-12] MEDS: ALBUTEROL FS 2.5 MG/0.5 ML VIAL.NEB NEB SCH ×4 (02:00→20:18)
[2018-10-12] MEDS: IPRATROPIUM NEB FS 0.5 MG/2.5 ML AMPUL.NEB NEB SCH ×4 (02:01→20:18)
[2018-10-12] MEDS: MEROPENEM 500 MG in IV NS 0.9% 100 ML IV SCH ×3 (05:34→20:57)
--- NOTE | 2018-10-12 06:28 | NUR ---
MS RN NOTES AWAKE & RESPONSIVE. NOT IN ANY DISTRESS. NO SOB NOTED. DENIES ANY PAIN OR DISCOMFORT AT THIS TIME. WITH IVF & GTF INFUSING WELL. MONITORED ACCORDINGLY. CALL LIGHT WITHIN REACH. BED IN LOWEST POSITION. SR UP X 3 WITH BED ALARM ON FOR SAFETY. WILL ENDORSE TO NEXT SHIFT.
[2018-10-12 07:24] LABS: CALCIUM, SERUM 9.5 mg/dL (8.5-10.1); CARBON DIOXIDE 25 mmol/L (21-32); CHLORIDE 104 mmol/L (98-107); CREATININE 0.8 mg/dL (0.6-1.3); GLUCOSE 94 mg/dL (74-106); POTASSIUM 4.4 mmol/L (3.5-5.1); SODIUM SERUM 138 mmol/L (136-145); UREA NITROGEN, BLOOD 24 mg/dL (7-18)
[2018-10-12 08:00] VITALS: BP 106/62
[2018-10-12] MEDS: BUDESONIDE RESPULE INH 0.25 MG/2 ML AMPUL.NEB IH SCH ×2 (08:57→15:02)
[2018-10-12] MEDS: DOCUSATE SODIUM LIQ 100 MG/10 ML UDC GT SCH (09:17)
[2018-10-12] MEDS: ASPIRIN 81 MG TAB.CHEW GT SCH (09:17)
[2018-10-12] MEDS: ASCORBIC ACID 500 MG TABLET GT SCH (09:17)
[2018-10-12] MEDS: FAMOTIDINE (20 MG) 20 MG TABLET GT SCH (09:17)
[2018-10-12] MEDS: FINASTERIDE (5 MG) 5 MG TABLET GT SCH (09:17)
[2018-10-12] MEDS: ALLOPURINOL 100 MG TABLET GT SCH (09:17)
[2018-10-12] MEDS: MULTIVIT W/MINERALS 1 TAB TABLET GT SCH (09:17)
[2018-10-12] MEDS: PROSOURCE / PROSTAT (PYXIS) 30 ML UDC GT SCH ×2 (09:17→16:41)
[2018-10-12] MEDS: Z GUARD REMEDY 2 OZ OINT TP SCH ×2 (09:18→21:18)
--- NOTE | 2018-10-12 11:00 | NUR ---
Dr Palumbo, A office was called as per family request, they want to talk to md left message.
[2018-10-12 16:00] VITALS: BP 103/63
[2018-10-12] MEDS: IV 1/2NS 1000 ML 1,000 ML IV PRN (16:10)
--- NOTE | 2018-10-12 18:41 | NUR ---
M/S RN NOTES PATIENT RESTING IN BED, FAMILY AT BEDSIDE. NO RESPIRATORY DISTRESS, ON NASAL CANULA 02 AT 2L. NO S/S OF PAIN AT THIS TIME. SKIN WARM TO TOUCH. IVF OF 1/2 NS INFUSING AT 75ML/HR ON THE KARLY 18G, INTACT AND PATENT. GT FEEDING OF TWO BOAZ RUNNING AT 45ML/HR. NEPHROSTOMY TUBES DRAINING YELLOW URINE. PATIENT'S NEEDS ATTENDED, REPOSITIONED EVERY 2 HOURS. PATIENT WITH BILAT MITTENS REMOVED AND CHECKED FOR REDNESS AND CIRCULATION. BED ON LOWEST LOCKED POSITION, CALL LIGHT WITHIN REACH. WILL ENDORSE TO ONCOMING NURSE.
--- NOTE | 2018-10-12 19:32 | NUR ---
MS RN RECEIVE PT IN BED A/O X 1 FARSI SPEAKING, STABLE, RESPIRATIONS EVEN AND UNLABORED, SAFETY MEASURES IN PLACE. WILL CONTINUE TO MONITOR
[2018-10-12 20:00] VITALS: BP 106/58
[2018-10-12] MEDS: ATORVASTATIN 10 MG TABLET PO SCH (21:17)
[2018-10-12] MEDS: TWOCAL HN 1,000 ML LIQUID GT PRN (21:18)
[2018-10-12] MEDS: INSULIN REGULAR, HUMAN 100 UNIT/ML 3 ML VIAL SQ PRN (23:15)
[2018-10-13] MEDS: ALBUTEROL FS 2.5 MG/0.5 ML VIAL.NEB NEB SCH ×4 (01:41→19:39)
[2018-10-13] MEDS: IPRATROPIUM NEB FS 0.5 MG/2.5 ML AMPUL.NEB NEB SCH ×4 (01:41→19:39)
[2018-10-13] MEDS: MEROPENEM 500 MG in IV NS 0.9% 100 ML IV SCH ×3 (05:14→21:32)
[2018-10-13] MEDS: IV 1/2NS 1000 ML 1,000 ML IV PRN (05:14)
[2018-10-13] MEDS: BLOOD SUGAR DIAGNOSTIC 1 EACH STRIP IN SCH ×3 (05:33→17:02)
[2018-10-13] MEDS: INSULIN REGULAR, HUMAN 100 UNIT/ML 3 ML VIAL SQ PRN (05:34)
--- NOTE | 2018-10-13 06:39 | NUR ---
MS RN ASLEEP AND EASILY AWAKEN, RESPIRATIONS EVEN AND UNLABORED. GT FEEDING INFUSING WELL ORDERED. STABLE, SLEPT WELL THROUGHOUT THE NIGHT. KEPT CLEAN AND DRY AND COMFORTABLE. NEEDS ATTENDED AND ANTICIPATED. NURSING CARE RENDERED, REPOSITION EVERY 2 HOURS. GOOD SKIN CARE. SAFETY MEASURES AT ALL TIMES. ENDORSE TO THE NEXT SHIFT.
[2018-10-13 06:46] LABS: BASOPHILS % (AUTO) 0.5 % (0.0-2.0); EOSINOPHILS % (AUTO) 4.2 % (0.0-6.0); HEMATOCRIT 36 % (39-51); HEMOGLOBIN 11.4 g/dL (13.5-17.5); LYMPHOCYTES # (AUTO) 1.2 /CMM (0.8-4.8); LYMPHOCYTES % (AUTO) 18.7 % (20.0-44.0); MEAN CORPUSCULAR HGB CONC 32 g/dl (31.0-36.0); MEAN CORPUSCULAR VOLUME 91 fL (80-96); MONOCYTES # (AUTO) 0.4 /CMM (0.1-1.30); MONOCYTES % (AUTO) 6.5 % (2.0-12.0); NEUTROPHILS # (AUTO) 4.5 /CMM (1.8-8.9); NEUTROPHILS % (AUTO) 70.1 % (43.0-81.0); PLATELET COUNT (AUTO) 276 /CMM (150-450); RED BLOOD CELL COUNT(AUTO) 3.94 MIL/uL (4.5-6.0); WHITE BLOOD COUNT (AUTO) 6.4 K/uL (4.3-11.0)
[2018-10-13 06:56] LABS: CARBON DIOXIDE 27 mmol/L (21-32); CHLORIDE 104 mmol/L (98-107); CREATININE 0.6 mg/dL (0.6-1.3); GLUCOSE 99 mg/dL (74-106); MAGNESIUM 1.8 mg/dL (1.8-2.4); PHOSPHORUS 3.5 mg/dL (2.5-4.9); POTASSIUM 4.7 mmol/L (3.5-5.1); SODIUM SERUM 139 mmol/L (136-145); UREA NITROGEN, BLOOD 23 mg/dL (7-18)
--- NOTE | 2018-10-13 07:45 | NUR ---
MS RN OPENING NOTES RECEIVED PT LAYING IN BED,W/ HOB ELEVATED. PT IS A/O X1, AFEBRILE. RESPIRATIONS ARE EVEN AND UNLABORED, NOT IN ANY ACUTE DISTRESS NOTED. NO FACIAL GRIMACING OR MOANING NOTED. IV SITE TO KARLY INTACT, NO INFILTRATION NOTED. DRESSING KEPT CLEAN AND DRY. BILATERAL HAND MITTENS ARE ON. SAFETY MEASURES ARE IN PLACE. WILL CONTINUE TO MONITOR THROUGHOUT SHIFT FOR CONTINUITY OF CARE.
[2018-10-13] MEDS: BUDESONIDE RESPULE INH 0.25 MG/2 ML AMPUL.NEB IH SCH ×2 (07:55→14:33)
[2018-10-13 08:00] VITALS: BP 106/60
[2018-10-13] MEDS: FINASTERIDE (5 MG) 5 MG TABLET GT SCH (08:48)
[2018-10-13] MEDS: ASPIRIN 81 MG TAB.CHEW GT SCH (08:48)
[2018-10-13] MEDS: MULTIVIT W/MINERALS 1 TAB TABLET GT SCH (08:48)
[2018-10-13] MEDS: ASCORBIC ACID 500 MG TABLET GT SCH (08:48)
[2018-10-13] MEDS: FAMOTIDINE (20 MG) 20 MG TABLET GT SCH (08:48)
[2018-10-13] MEDS: ALLOPURINOL 100 MG TABLET GT SCH (08:48)
[2018-10-13] MEDS: DOCUSATE SODIUM LIQ 100 MG/10 ML UDC GT SCH (08:48)
[2018-10-13] MEDS: PROSOURCE / PROSTAT (PYXIS) 30 ML UDC GT SCH ×2 (08:51→17:02)
[2018-10-13] MEDS: Z GUARD REMEDY 2 OZ OINT TP SCH ×2 (08:52→21:33)
--- NOTE | 2018-10-13 13:37 | NUR ---
MS RN NOTES-- CAREGIVER AT BEDSIDE. PT DOES NOT APPEAR TO BE IN ANY APPARENT DISTRESS. REPOSITIONED Q2H. WILL CONTINUE TO MONITOR.
[2018-10-13] MEDS: TWOCAL HN 1,000 ML LIQUID GT PRN (15:26)
[2018-10-13 16:00] VITALS: BP 100/58
--- NOTE | 2018-10-13 18:25 | NUR ---
MS RN CLOSING NOTES ALL DUE MEDS GIVEN. NEEDS MET AND ANTICIPATED. PT IS RESPONSIVE TO NAME AND TOUCH. RESPIRATIONS ARE EVEN AND UNLABORED, NOT IN ANY ACUTE DISTRESS NOTED. NO FACIAL GRIMACING OR MOANING NOTED. MIDLINE TO KARLY INTACT, NO INFILTRATION NOTED. DRESSING KEPT CLEAN AND DRY. CAREGIVER AT BEDSIDE. SAFETY MEASURES ARE IN PLACE. WILL ENDORSE TO NEXT SHIFT FOR CONTINUITY OF CARE.
--- NOTE | 2018-10-13 19:10 | NUR ---
MS RN NOTES RECEIVED PT IN BED AND AWAKE. PT RESPONSIVE TO NAME AND TOUCH. RESPIRATIONS ARE EVEN AND UNLABORED WITH NO S/S OF ACUTE DISTRESS OR SOB NOTED. NO S/S OF PAIN AT THIS TIME. PT WITH MIDLINE TO KARLY RUNNING 1/2 NS @75ML/HR, INTACT WITH NO INFILTRATION NOTED. SAFETY MEASURES IN PLACE WITH BED IN LOWEST LOCKED POSITION WITH SIDE RAILS UP X2. CALL LIGHT WITHIN REACH. WILL CONTINUE TO MONITOR.
[2018-10-13 20:00] VITALS: BP 133/77
[2018-10-13] MEDS: ATORVASTATIN 10 MG TABLET PO SCH (21:32)
[2018-10-14] MEDS: BLOOD SUGAR DIAGNOSTIC 1 EACH STRIP IN SCH ×5 (00:09→23:30)
[2018-10-14] MEDS: ALBUTEROL FS 2.5 MG/0.5 ML VIAL.NEB NEB SCH ×4 (01:00→20:22)
[2018-10-14] MEDS: IPRATROPIUM NEB FS 0.5 MG/2.5 ML AMPUL.NEB NEB SCH ×4 (01:00→20:22)
[2018-10-14] MEDS: IV 1/2NS 1000 ML 1,000 ML IV PRN (03:17)
[2018-10-14] MEDS: MEROPENEM 500 MG in IV NS 0.9% 100 ML IV SCH ×3 (05:46→20:01)
--- NOTE | 2018-10-14 07:20 | NUR ---
MS/RN NOTE THE PATIENT IS RECEIVED IN BED. ALERT AND ORIENTED TO SELF. RECEVING OXYGEN AT 3L/MIN VIA NASAL CANNULA AND NO MANIFESTATION OF RESPIRATORY DISTRESS NOTED. THE PATIENT IN NO APPARENT DISTRESS. GT FEEDING ON AT 45ML HR, ABDOMEN SOFT AND NON-DISTENDED. HOB ELEVATED. KARLY G 18 MIDLINE PATENT AND 1/2 NS INFUSING AT 75ML/HR AND NO S/S INFILTRATION NOTED. BILATERAL MITTENS ON PER ORDER. NO S/S POOR CIRCULATION NOTED. BED LOW AND LOCKED. SIDE RAILS UP X3. CALL LIGHT WITHIN REACH. WILL CONTINUE TO MONITOR.
[2018-10-14] MEDS: BUDESONIDE RESPULE INH 0.25 MG/2 ML AMPUL.NEB IH SCH ×2 (07:43→14:58)
--- NOTE | 2018-10-14 07:44 | NUR ---
MS RN NOTES PT IN BED ASLEEP BUT EASILY AWOKEN VERBALLY OR BY TOUCH. PT RESPONSIVE TO NAME AND TOUCH. RESPIRATIONS ARE EVEN AND UNLABORED WITH NO S/S OF ACUTE DISTRESS OR SOB NOTED THROUGHOUT SHIFT. PT WITH SOFT MITTENS BILATERALLY. NO S/S OF PAIN AT THIS TIME. PT WITH MIDLINE TO KARLY RUNNING 1/2 NS @75ML/HR, INTACT WITH NO INFILTRATION NOTED. PT TURNED Q2 HRS. PT KEPT CLEAN, DRY, AND COMFORTABLE. SAFETY MEASURES IN PLACE WITH BED IN LOWEST LOCKED POSITION WITH SIDE RAILS UP X2. CALL LIGHT WITHIN REACH. WILL ENDORSE TO ONCOMING NURSE FOR TYRA.
[2018-10-14 08:00] VITALS: BP 111/69
[2018-10-14] MEDS: PROSOURCE / PROSTAT (PYXIS) 30 ML UDC GT SCH ×2 (09:43→16:32)
[2018-10-14] MEDS: ALLOPURINOL 100 MG TABLET GT SCH (09:43)
[2018-10-14] MEDS: ASCORBIC ACID 500 MG TABLET GT SCH (09:43)
[2018-10-14] MEDS: MULTIVIT W/MINERALS 1 TAB TABLET GT SCH (09:43)
[2018-10-14] MEDS: DOCUSATE SODIUM LIQ 100 MG/10 ML UDC GT SCH (09:43)
[2018-10-14] MEDS: FINASTERIDE (5 MG) 5 MG TABLET GT SCH (09:43)
[2018-10-14] MEDS: ASPIRIN 81 MG TAB.CHEW GT SCH (09:43)
[2018-10-14] MEDS: FAMOTIDINE (20 MG) 20 MG TABLET GT SCH (09:43)
[2018-10-14] MEDS: Z GUARD REMEDY 2 OZ OINT TP SCH ×2 (09:44→20:15)
--- NOTE | 2018-10-14 10:40 | NUR ---
RN NOTE TRANSFER OF CARE RECEIVED FROM RN JHONATAN AT THIS TIME. PT NOTED TO BE RESTING IN BED STABLE WITH NO S/S OF ANY DISTRESS OR PAIN, IV IS PATENT AND INTACT, GTUBE IN PLACE WITH FEEDING TO BEIN ATB 12 PM AND NEPHROSTOMY TUBE IN PLACE DRAINING WELL, SAFETY PRECAUTION IN PLACE, CALL LIGHT WITHIN REACH, WILL MONITOR ACCORDINGLY
--- NOTE | 2018-10-14 10:59 | NUR ---
MS/RN NOTE REPORT GIVEN TO FRANCINE MOMIN.
[2018-10-14] MEDS: INSULIN REGULAR, HUMAN 100 UNIT/ML 3 ML VIAL SQ PRN ×3 (11:32→23:33)
[2018-10-14 16:00] VITALS: BP 105/57
--- NOTE | 2018-10-14 18:27 | NUR ---
RN CLOSING NOTE PT IN BED AT LOWEST AND LOCKED POSITION WITH SIDE RAILS X2, A/O X1 BREATHING EVEN AND UNLABORED ON 3L VIA NC, NO S/S OF ANY DISTRESS OR PAIN AT THIS TIME, NOTED TO HAVE GTUBE IN PLACE WITH FEEDING RUNNING, NEPHROSTOMY TUBES IN PLACE DRAINING, KARLY MIDLINE IS PATENT AND INTACT WITH NS INFUSING, MITTENS IN PLACE, CAREGIVER AT BEDSIDE, SAFETY PRECAUTIONS IN PLACE, CALL LIGHT WITHIN, ALL NEEDS ATTENDED TO, WILL ENDORSE TO NIGHT RN FOR TYRA.
--- NOTE | 2018-10-14 19:26 | NUR ---
MS RN OPENING NOTES: RECEIVED PT ON 3LPM VIA NC AND IS TOLERATING WELL. PT IS FARSI SPEAKING ONLY AND APPEARS TO BE ORIENTED TO SELF ONLY. PT HAS BILATERAL MITTENS ON FOR SAFETY PT ATTEMPTS TO PULL OUT TUBINGS. PT HAS G TUBE WITH NO RESIDUAL NOTED. PT HAS G TUBE FEEDING TWO BOAZ AT 45ML/HR. PT ALSO HAS KARLY #18G MIDLINE AND IS BEING INFUSED WITH IV 1/2 NS AT 75ML/HR. PT HAS BILATERAL NEPHROSTOMY TUBES WITH YELLOW FLUIDS DRAINING. BED KEPT IN LOW, LOCKED POSITION, AND SIDE RAILS X 2UP. BED ALARM ACTIVATED. WILL CONTINUE TO MONITOR PT.
[2018-10-14] MEDS: TWOCAL HN 1,000 ML LIQUID GT PRN (19:38)
[2018-10-14 20:00] VITALS: BP 134/65
[2018-10-14] MEDS: ATORVASTATIN 10 MG TABLET PO SCH (22:30)
[2018-10-15 02:01] VITALS: BP 104/57
[2018-10-15] MEDS: IPRATROPIUM NEB FS 0.5 MG/2.5 ML AMPUL.NEB NEB SCH ×3 (02:03→14:04)
[2018-10-15] MEDS: ALBUTEROL FS 2.5 MG/0.5 ML VIAL.NEB NEB SCH ×3 (02:03→14:04)
[2018-10-15] MEDS: IV 1/2NS 1000 ML 1,000 ML IV PRN (03:00)
[2018-10-15] MEDS: MEROPENEM 500 MG in IV NS 0.9% 100 ML IV SCH ×2 (04:07→12:21)
[2018-10-15] MEDS: BLOOD SUGAR DIAGNOSTIC 1 EACH STRIP IN SCH ×2 (05:15→12:18)
[2018-10-15] MEDS: INSULIN REGULAR, HUMAN 100 UNIT/ML 3 ML VIAL SQ PRN (05:51)
--- NOTE | 2018-10-15 07:03 | NUR ---
MS RN CLOSING NOTES: ALL NEEDS WERE ATTENDED AND ANTICIPATED FOR. PT KEPT CLEAN, DRY, AND COMFORTABLE. PT REMAINS ON 3LPM VIA NC AND IS TOLERATING WELL. NO SOB NOTED. NO S/S OF DISTRESS. PT ASLEEP AT THIS TIME. PT HAS BILATERAL NEPHROSTOMY TUBES WITH FLUID DRAINING. OUTPUT FOR LEFT WAS 150ML AND OUTPUT FOR RIGHT WAS 250ML. BED ALARM ACTIVATED. G TUBE FEEDING TWO BOAZ AT 45ML/HR. NO RESIDUAL NOTED. PT HAS KARLY MIDLINE AND IS BEING INFUSED WITH IV 1/2 NS AT 75ML/HR. BED KEPT IN LOW, LOCKED POSITION, AND SIDE RAILS X3 UP. WILL ENDORSE TO AM NURSE FOR TYRA.
--- NOTE | 2018-10-15 07:58 | NUR ---
MS RN OPENING NOTES: RECEIVED PATIENT ASLEEP IN MODERATE HIGH BACK REST, A/O X 1. EASILY AROUSABLE. ON OXYGEN 3LPM VIA NC. NO SOB NOTED. NO S/S OF DISTRESS. IVF ON RIGHT UA MIDLINE #18 WITH 1/2 NS @75ML/HR PATENT AND INTACT. PT HAS BILATERAL NEPHROSTOMY TUBES WITH FLUID DRAINING. NOTED WITH G-TUBE FEEDING TWO BOAZ AT 45ML/HR. NO RESIDUAL NOTED. BED KEPT IN LOW, LOCKED POSITION, AND SIDE RAILS X3 UP. WILL CONTINUE TO MONITOR.
[2018-10-15 08:00] VITALS: BP 106/62
[2018-10-15] MEDS: BUDESONIDE RESPULE INH 0.25 MG/2 ML AMPUL.NEB IH SCH ×2 (08:05→14:04)
[2018-10-15] MEDS: ASCORBIC ACID 500 MG TABLET GT SCH (09:02)
[2018-10-15] MEDS: FINASTERIDE (5 MG) 5 MG TABLET GT SCH (09:02)
[2018-10-15] MEDS: FAMOTIDINE (20 MG) 20 MG TABLET GT SCH (09:02)
[2018-10-15] MEDS: ALLOPURINOL 100 MG TABLET GT SCH (09:02)
[2018-10-15] MEDS: DOCUSATE SODIUM LIQ 100 MG/10 ML UDC GT SCH (09:02)
[2018-10-15] MEDS: MULTIVIT W/MINERALS 1 TAB TABLET GT SCH (09:02)
[2018-10-15] MEDS: ASPIRIN 81 MG TAB.CHEW GT SCH (09:02)
[2018-10-15] MEDS: PROSOURCE / PROSTAT (PYXIS) 30 ML UDC GT SCH (09:03)
[2018-10-15] MEDS: Z GUARD REMEDY 2 OZ OINT TP SCH (09:14)
--- NOTE | 2018-10-15 15:10 | NUR ---
MS RN NOTES PATIENT FOR DISCHARGE THIS AFTERNOON, CALLED AND REPORT GIVEN TO PRISCILLA PABON (NURSING OTHER [facility]OR[facility] OFFICIAL) OF [facility]([phone]).
--- NOTE | 2018-10-15 16:00 | NUR ---
MS SAND SLINGER OPERATOR NOTES PATIENT DISCHARGED TO [facility] IN STABLE CONDITION. A/OX1. V/S TAKEN, STABLE AND RECORDED. RIGHT UA MIDLINE #18, SL, PATENT AND INTACT. DID NOT REMOVE IV DUE TO CONTINUATION OF IV ATB IN THE [facility]. G-TUBE IN PLACE AND PATENT. WITH RIGHT AND LEFT NEPHROSTOMY, INTACT AND DRAINING. ALL BELONGINGS CHECKED AND SIGNED. HEALTH TEACHINGS/DISCHARGED INSTRUCTIONS GIVEN TO DAUGHTER AND VERBALIZED UNDERSTANDING. PATIENT LEFT UNIT AT 1550 VIA GURNEY WITH 2 EMT STAFF WITH NO S/S OF ACUTE DISTRESS. CHARGE NURSE AWARE OF DISCHARGED.
== END 2018-10-15 15:30 | DRG 720 ==
LOC: ER 23:40 → MEDSG2 10-09 01:32 → MED 10-09 02:08 → TELE 10-09 03:21 → MED 10-09 13:10
PROC: 05H933Z Insertion of Infusion Device into Right Brachial Vein, Percutaneous Approach (ICD-10-PCS; principal; 2018-10-09)
DX: A41.9 Sepsis, unspecified organism (principal); J96.21 Acute and chronic respiratory failure with hypoxia; N17.0 Acute kidney failure with tubular necrosis; G93.41 Metabolic encephalopathy; D47.2 Monoclonal gammopathy; I48.91 Unspecified atrial fibrillation; J44.1 Chronic obstructive pulmonary disease with (acute) exacerbation; E86.0 Dehydration; E44.1 Mild protein-calorie malnutrition; G30.9 Alzheimer's disease, unspecified; F02.80 Dementia in other diseases classified elsewhere, unspecified severity, without behavioral disturbance, psychotic disturbance, mood disturbance, and anxiety; N28.1 Cyst of kidney, acquired; Z93.1 Gastrostomy status; R13.10 Dysphagia, unspecified; Z93.6 Other artificial openings of urinary tract status; N39.0 Urinary tract infection, site not specified; I10 Essential (primary) hypertension; J96.22 Acute and chronic respiratory failure with hypercapnia; I25.10 Atherosclerotic heart disease of native coronary artery without angina pectoris; Z95.0 Presence of cardiac pacemaker; Z85.51 Personal history of malignant neoplasm of bladder; Z92.3 Personal history of irradiation; Z87.891 Personal history of nicotine dependence; Z87.440 Personal history of urinary (tract) infections; Z74.01 Bed confinement status; Z88.1 Allergy status to other antibiotic agents; Z79.899 Other long term (current) drug therapy; N40.0 Benign prostatic hyperplasia without lower urinary tract symptoms; G47.33 Obstructive sleep apnea (adult) (pediatric); D64.9 Anemia, unspecified; L60.3 Nail dystrophy; N28.89 Other specified disorders of kidney and ureter; J98.11 Atelectasis; K57.30 Diverticulosis of large intestine without perforation or abscess without bleeding; F09 Unspecified mental disorder due to known physiological condition; Z74.09 Other reduced mobility; Z85.118 Personal history of other malignant neoplasm of bronchus and lung
CPT/HCPCS: 31720; 36415; 71045-TC; 80048-TC; 80053-TC; 80076-TC; 81000-TC; 82962-TC; 83605-TC; 83690-TC; 83735-TC; 83880; 84100-TC; 84484-TC; 85025-TC; 87040-TC; 87081-TC; 87086-TC; 94799-TC; A4216; A6403; G0378; J0692; J1815; J2185; J3490; J7030; J7050